=== PATIENT | female | born 1950 | race Caucasian/White ===

== ENCOUNTER → 2017-05-30 | Outpatient (CLI) | payer BC ==
--- NOTE | 2017-05-31 12:56 | MAMMOGRAPHY REPORT ---
BILATERAL DIGITAL SCREENING MAMMOGRAM TOMOSYNTHESIS WITH CAD: 05/30/2017 CLINICAL HISTORY: Routine screening. Patient has no complaints. TECHNIQUE: Breast tomosynthesis in addition to standard 2D mammography was performed. Current study was also evaluated with a Computer Aided Detection (CAD) system. COMPARISON: Comparison is made to exams dated: 05/18/2016 ultrasound, 05/18/2016 mammogram, 05/09/2016 mammogram, 04/08/2015 mammogram, 12/23/2013 mammogram, and 12/23/2013 ultrasound - [facility]. BREAST COMPOSITION: The tissue of both breasts is heterogeneously dense, which may obscure small mas ses. FINDINGS: No suspicious masses, calcifications, or areas of architectural distortion are noted in ei ther breast. There has been no significant interval change compared to prior exams. Scattered bilater al benign-appearing calcifications are not significantly changed. IMPRESSION: ACR BI-RADS CATEGORY 2: BENIGN There is no mammographic evidence of malignancy. A 1 year screening mammogram is recommended. The pa tient will receive written notification of the results. Approximately 10% of breast cancers are not detected with mammography. A negative mammographic report should not delay biopsy if a clinically suggestive mass is present. Sarah Cardoza M.D. /:05/30/2017 14:45:39 Boiler Coverer: Shilpi Bain, [facility] letter sent: Normal 1/2 BI-RADS Code: ACR BI-RADS Category 2: Benign
== END | disposition home or self-care (01) ==
LOC: C.MAMM 09:31
PROVIDERS: ATTEND Obstetrics & Gynecology
DX: Z12.31 Encounter for screening mammogram for malignant neoplasm of breast (principal)

== ENCOUNTER 2021-09-23 12:02 | Inpatient (IN) ==
[2021-09-23] MEDS ORDERED: SODIUM CHLORIDE 0.9% 1000ML 1,000 ML IV ONE (12:43)
[2021-09-23] MEDS ORDERED: ASPIRIN CHEW 324 MG PO STA (12:43)
[2021-09-23 12:45] LABS: Basophils # (auto) 0.02 K/uL (0-0.2); Basophils % (auto) 0.2 %; Eosinophils # (auto) 0.02 K/uL (0-0.5); Eosinophils % (auto) 0.2 %; Hematocrit (blood only) 45.2 % (37-47); Hemoglobin 15.5 g/dL (12.0-16.0); Immature Granulocytes # (auto) 0.04 K/uL (0.00-0.02); Immature Granulocytes % (auto) 0.3 %; Lymphocytes % (auto) 9.9 %; Mean Corpuscular Hemoglobin 32.5 pg (25-34); Mean Corpuscular Hgb Conc 34.3 g/dL (32-36); Mean Corpuscular Volume 94.8 fL (80-100); Monocytes # (auto) 0.68 K/uL (0.11-0.59); Monocytes % (auto) 5.2 %; Neutrophils # (auto) 11.01 K/uL (1.4-6.5); Neutrophils % (auto) 84.2 %; Platelet Count 231 K/uL (130-400); RDW Coefficient of Variation 14.1 % (11.5-14.5); RDW Standard Deviation 48.8 fL (36.4-46.3); Red Blood Count 4.77 M/uL (4.2-5.4); White Blood Count 13.07 K/uL (4.8-10.8)
--- NOTE | 2021-09-23 13:03 | Emergency Department Note ---
Impression & Plan Pulmonary embolism, Dizziness, Elevated troponin ED Provider Note NAME: CINDY RICHARD AGE: 71 SEX: F : 1950 ARRIVES VIA: Walk-In INFORMANT: Patient ED PROVIDER(S): Faheem Arriola DO CHIEF COMPLAINT: lightheaded HPI: Patient is a 71-year-old female with a past medical history of hypercholesterol and hypertension as well as CKD that presents to the ER for f eeling diffuse myalgias as well as some mild chest pain this morning which has resolved. When she woke up this morning she noticed a pressure in her chest. She got up and walked to the restroom and at that time she felt off kilter and felt like she was going to pass out. She also started hyperventilating and had some tingling and numbness in her arms and was breathing into a brown paper bag. Denies any belly pain, nausea, vomiting, or diarrhea. No dysuria, urgency, or frequency. She admits that currently she does not feel right. ROS: See above HPI for pertinent positives & negatives. A total of 10 systems reviewed and were otherwise negative. PAST MEDICAL HISTORY:See Below PAST SURGICAL HISTORY:See Below FAMILY HISTORY:See Below SOCIAL HISTORY:See Below HOME MEDICATIONS:See Below ALLERGIES:See Below VITALS:See Below PHYSICAL EXAMINATION: GENERAL: Sitting up in bed, alert, well appearing, well nourished, no obvious distress EYE EXAM: normal conjunctiva. OROPHARYNX: mucous membranes are moist NECK: supple, no nuchal rigidity, no adenopathy, non-tender LUNGS: Clear to auscultation. Normal chest wall mechanics HEART: tachy, S1 normal and S2 normal ABDOMEN: abdomen soft, non-tender, normo-active bowel sounds, no masses, no rebound or guarding. UPPER EXTREMITIES: upper extremities are grossly normal. LOWER EXTREMITIES: No pitting edema. NEURO EXAM: Normal sensorium, cranial nerves II-XII grossly intact, normal speech, no gross weakness of arms, no gross weakness of legs. MEDICAL DECISION MAKING: Patient is a 71-year-old female who presents the ER with above-stated complaint. IV was established blood work was obtained. Labs showed a leukocytosis 13,000. No significant anemia. BMP was unremarkable with exception of slightly elevated glucose. Troponin was elevated 0.66. EKG showed a sinus tachycardia. She was given IV fluids. There is nonspecific ST wave changes. With sinus tachycardia and the elevated troponin did consider an underlying atrial flutter but felt was prudent to completely rule out PE. Patient was taken directly to the CAT scan on the result of her Creatinine prior to the D-dimer and was brought back. I reviewed the images and saw extensive bilateral PEs with a saddle. Prior to the report from radiology consult with Dr. Stahl. Discussed the case with him. He was agreeable to keeping the patient here recommended discussing TPA with the patient versus just heparin. Had a protracted conversation with the patient at bedside. 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 Discussed with Dr. Christian Painting. Patient was given a bolus of heparin as well as a heparin drip. She is updated bedside. She is to the hospitalist and will go to the ICU for further work-up and treatment. Triage Nursing notes reviewed. Limited review of prior medical records performed Vital Signs: reviewed and remarkable for tachy, HTN Differential diagnosis: Differential diagnoses includes but is not limited to pneumonia, bronchitis, COPD/Asthma exacerbation, pneumothorax, pulmonary embolism, congestive heart failure, acute coronary syndrome ER treatment provided: See below Diagnostics interpreted by me: ECG: Sinus tachycardia rate of 137 Normal axis Septal Q waves Nonspecific ST wave changes in the lateral leads Nonspecific ST wave changes in the inferior leads QTC 422 Cardiac Monitoring: An order was placed for continuous cardiac monitoring. The monitor shows a rate of 130 with sinus rhythm. Laboratory studies: As stated above and show below. Imaging studies: CT angio the chest shows saddle PE Consultation(s): Discussed with Dr. Peewee Stahl from the ICU who agrees with keeping the p atient here and recommends discussing TPA versus heparin with the patient. They will further evaluate her once in the ICU. Discussed with Christian Painting for further evaluation admission Procedures: none Critical Care: I have personally spent 32 minutes of critical care time in the direct management of this patient. This includes bedside care, interpretation of diagnostic studies, and testing, discussion with consultants, patient, and family members, and other required patient management activities. This 32 minutes is in excess of all separately billable procedures. Past Med/Surg History Medical History CKD (chronic kidney disease) H/O cyst of breast Uterine prolapse Surgical History H/O tooth extraction Family History Denies family history of Colon cancer Ovarian cancer Breast cancer Social History Smoking Status: Never smoker Hx Alcohol Use: No Hx Substance Use: No Preferred Language: Kinyarwanda Feels Safe at Home: Yes Allergies Allergies Allergy/AdvReac Type Severity Reaction Status Date / Time amlodipine Allergy Verified 09/23/21 13:33 Home Meds Home Medications Medication Instructions Recorded Confirmed cholecalciferol (vitamin D3) 25 1,000 units PO DAILY 12/29/18 09/23/21 mcg (1,000 unit) capsule ascorbic acid (vitamin C) 500 mg 500 mg PO DAILY 09/23/21 09/23/21 tablet (Vitamin C) lisinopril 10 mg tablet 10 mg PO DAILY 09/23/21 09/23/21 multivitamin 1 tab PO DAILY 09/23/21 09/23/21 Previous Rx's Medication Instructions Recorded conjugated estrogens 0.625 mg/gram See Rx Instructions PV .COMPLEX 07/27/21 vaginal cream (Premarin) #30 gm Results & Data (ED) Vital Signs Vital Signs - 24 hr 09/23/21 12:15 09/23/21 12:23 09/23/21 12:36 Temperature 36.6 C Temperature Source Temporal Artery Scan Pulse Rate 147 H 144 H Pulse Rate [Left Finger] 127 H Pulse Rate from SpO2 Sensor Pulse Rhythm Regular Regular Pulse Rhythm [Left Finger] Regular Pulse Strength Normal Pulse Strength [Left Finger] Normal Respiratory Rate 24 20 20 Respiratory Effort / Characteristics Non-Labored Spontaneous Non-Labored Spontaneous Respiratory Depth Normal Normal Respiratory Pattern Regular Regular Blood Pressure 164/102 H Blood Pressure [Right Arm] 196/127 H Blood Pressure Mean 122 Blood Pressure Mean [Right Arm] 150 Blood Pressure Position Sitting Blood Pressure Position [Right Arm] Sitting Pulse Oximetry 94 94 95 Oxygen Delivery Method Room Air Room Air Room Air Sepsis Recent Fever Within 48 Hours No Sepsis New/Unexplained Change in Mental Status No Sepsis Action Taken by Nursing No Action Required 09/23/21 12:49 09/23/21 12:50 09/23/21 13:00 Temperature Temperature Source Pulse Rate 128 H 130 H 131 H Pulse Rate [Left Finger] Pulse Rate from SpO2 Sensor 130 H 131 H Pulse Rhythm Pulse Rhythm [Left Finger] Pulse Strength Pulse Strength [Left Finger] Respiratory Rate 24 25 H 22 Respiratory Effort / Characteristics Respiratory Depth Respiratory Pattern Blood Pressure Blood Pressure [Right Arm] Blood Pressure Mean Blood Pressure Mean [Right Arm] Blood Pressure Position Blood Pressure Position [Right Arm] Pulse Oximetry 95 92 Oxygen Delivery Method Sepsis Recent Fever Within 48 Hours Sepsis New/Unexplained Change in Mental Status Sepsis Action Taken by Nursing 09/23/21 13:10 09/23/21 13:19 09/23/21 13:20 Temperature Temperature Source Pulse Rate 130 H 134 H 129 H Pulse Rate [Left Finger] Pulse Rate from SpO2 Sensor 128 H 134 H 130 H Pulse Rhythm Pulse Rhythm [Left Finger] Pulse Strength Pulse Strength [Left Finger] Respiratory Rate 21 28 H 20 Respiratory Effort / Characteristics Respiratory Depth Respiratory Pattern Blood Pressure 198/121 H Blood Pressure [Right Arm] Blood Pressure Mean 146 Blood Pressure Mean [Right Arm] Blood Pressure Position Blood Pressure Position [Right Arm] Pulse Oximetry 96 96 93 Oxygen Delivery Method Sepsis Recent Fever Within 48 Hours Sepsis New/Unexplained Change in Mental Status Sepsis Action Taken by Nursing 09/23/21 13:30 09/23/21 13:44 09/23/21 13:58 Temperature Temperature Source Pulse Rate 135 H 130 H 137 H Pulse Rate [Left Finger] 134 H Pulse Rate from SpO2 Sensor 135 H 138 H Pulse Rhythm Pulse Rhythm [Left Finger] Regular Pulse Strength Pulse Strength [Left Finger] Normal Respiratory Rate 23 21 Respiratory Effort / Characteristics Non-Labored Spontaneous Respiratory Depth Normal Respiratory Pattern Regular Blood Pressure Blood Pressure [Right Arm] 198/121 H Blood Pressure Mean Blood Pressure Mean [Right Arm] 146 Blood Pressure Position Blood Pressure Position [Right Arm] Pulse Oximetry 96 94 Oxygen Delivery Method Room Air Sepsis Recent Fever Within 48 Hours Sepsis New/Unexplained Change in Mental Status Sepsis Action Taken by Nursing 09/23/21 14:00 09/23/21 14:10 09/23/21 14:20 Temperature Temperature Source Pulse Rate 136 H 141 H 142 H Pulse Rate [Left Finger] Pulse Rate from SpO2 Sensor 139 H 143 H 142 H Pulse Rhythm Pulse Rhythm [Left Finger] Pulse Strength Pulse Strength [Left Finger] Respiratory Rate 27 H 23 Respiratory Effort / Characteristics Respiratory Depth Respiratory Pattern Blood Pressure Blood Pressure [Right Arm] Blood Pressure Mean Blood Pressure Mean [Right Arm] Blood Pressure Position Blood Pressure Position [Right Arm] Pulse Oximetry 93 92 94 Oxygen Delivery Method Sepsis Recent Fever Within 48 Hours Sepsis New/Unexplained Change in Mental Status Sepsis Action Taken by Nursing 09/23/21 14:30 09/23/21 14:40 Temperature Temperature Source Pulse Rate 136 H 139 H Pulse Rate [Left Finger] Pulse Rate from SpO2 Sensor 136 H 138 H Pulse Rhythm Pulse Rhythm [Left Finger] Pulse Strength Pulse Strength [Left Finger] Respiratory Rate 27 H 22 Respiratory Effort / Characteristics Respiratory Depth Respiratory Pattern Blood Pressure 170/112 H Blood Pressure [Right Arm] Blood Pressure Mean 131 Blood Pressure Mean [Right Arm] Blood Pressure Position Blood Pressure Position [Right Arm] Pulse Oximetry 94 93 Oxygen Delivery Method Sepsis Recent Fever Within 48 Hours Sepsis New/Unexplained Change in Mental Status Sepsis Action Taken by Nursing Laboratory Data Result diagrams: 09/23/21 12:30 09/23/21 12:30 Lab Results 09/23/21 09/23/21 09/23/21 Range/Units 12:30 12:30 12:30 WBC 13.07 H (4.8-10.8) K/uL RBC 4.77 (4.2-5.4) M/uL Hgb 15.5 (12.0-16.0) g/dL Hct 45.2 (37-47) % MCV 94.8 (80-100) fL MCH 32.5 (25-34) pg MCHC 34.3 (32-36) g/dL RDW Std Deviation 48.8 H (36.4-46.3) fL RDW Coeff of Renae 14.1 (11.5-14.5) % Plt Count 231 (130-400) K/uL MPV 10.0 (7.4-10.4) fL Immature Gran % (Auto) 0.3 % Neut % (Auto) 84.2 % Lymph % (Auto) 9.9 % Cloud % (Auto) 5.2 % Eos % (Auto) 0.2 % Baso % (Auto) 0.2 % Neut # (Auto) 11.01 H (1.4-6.5) K/uL Lymph # (Auto) 1.30 (1.2-3.4) K/uL Cloud # (Auto) 0.68 H (0.11-0.59) K/uL Eos # (Auto) 0.02 (0-0.5) K/uL Baso # (Auto) 0.02 (0-0.2) K/uL Immature Gran # (Auto) 0.04 H (0.00-0.02) K/uL D-Dimer 3960 H* (0-500) ug/L FEU Sodium 139 (136-145) mmol/L Potassium 3.9 (3.5-5.1) mmol/L Chloride 103 (98-107) mmol/L Carbon Dioxide 24 (21-32) mmol/L Anion Gap 12 H (3-11) BUN 20 (6-23) mg/dl Creatinine 1.17 (0.6-1.2) mg/dl Est Cr Clr Drug Dosing 49.6 ml/min Est GFR ( Amer) 53.5 ml/min Est GFR (Non-Af Amer) 46.2 ml/min BUN/Creatinine Ratio 17.1 (10-20) Glucose 166 H (70-99(Fasting)) mg/dl Lactate (0.4-2.0) mmol/L Calcium 9.7 (8.5-10.1) mg/dl Magnesium (1.7-2.4) mg/dl Total Bilirubin 0.6 (0.2-1.0) mg/dl AST 39 (13-39) U/L ALT 43 (7-52) U/L Alkaline Phosphatase 84 (34-104) U/L Troponin I 0.66 H* (0-0.04) ng/ml B-Natriuretic Peptide (0-100) pg/ml Total Protein 7.9 (6.0-8.3) gm/dl Albumin 4.6 (3.4-5.0) gm/dl Globulin 3.3 (2.5-4.0) gm/dl Albumin/Globulin Ratio 1.4 (0.9-2) Lipase 48 (11-82) U/L TSH (0.300-4.500) uIu/ml SARS-CoV-2, RNA, NAAT (NEGATIVE) 09/23/21 09/23/21 09/23/21 Range/Units 12:30 12:43 14:15 WBC (4.8-10.8) K/uL RBC (4.2-5.4) M/uL Hgb (12.0-16.0) g/dL Hct (37-47) % MCV (80-100) fL MCH (25-34) pg MCHC (32-36) g/dL RDW Std Deviation (36.4-46.3) fL RDW Coeff of Renae (11.5-14.5) % Plt Count (130-400) K/uL MPV (7.4-10.4) fL Immature Gran % (Auto) % Neut % (Auto) % Lymph % (Auto) % Cloud % (Auto) % Eos % (Auto) % Baso % (Auto) % Neut # (Auto) (1.4-6.5) K/uL Lymph # (Auto) (1.2-3.4) K/uL Cloud # (Auto) (0.11-0.59) K/uL Eos # (Auto) (0-0.5) K/uL Baso # (Auto) (0-0.2) K/uL Immature Gran # (Auto) (0.00-0.02) K/uL D-Dimer (0-500) ug/L FEU Sodium (136-145) mmol/L Potassium (3.5-5.1) mmol/L Chloride (98-107) mmol/L Carbon Dioxide (21-32) mmol/L Anion Gap (3-11) BUN (6-23) mg/dl Creatinine (0.6-1.2) mg/dl Est Cr Clr Drug Dosing ml/min Est GFR ( Amer) ml/min Est GFR (Non-Af Amer) ml/min BUN/Creatinine Ratio (10-20) Glucose (70-99(Fasting)) mg/dl Lactate (0.4-2.0) mmol/L Calcium (8.5-10.1) mg/dl Magnesium 2.0 (1.7-2.4) mg/dl Total Bilirubin (0.2-1.0) mg/dl AST (13-39) U/L ALT (7-52) U/L Alkaline Phosphatase (34-104) U/L Troponin I (0-0.04) ng/ml B-Natriuretic Peptide (0-100) pg/ml Total Protein (6.0-8.3) gm/dl Albumin (3.4-5.0) gm/dl Globulin (2.5-4.0) gm/dl Albumin/Globulin Ratio (0.9-2) Lipase (11-82) U/L TSH 2.518 (0.300-4.500) uIu/ml SARS-CoV-2, RNA, NAAT NEGATIVE (NEGATIVE) 09/23/21 09/23/21 Range/Units 14:24 14:25 WBC (4.8-10.8) K/uL RBC (4.2-5.4) M/uL Hgb (12.0-16.0) g/dL Hct (37-47) % MCV (80-100) fL MCH (25-34) pg MCHC (32-36) g/dL RDW Std Deviation (36.4-46.3) fL RDW Coeff of Renae (11.5-14.5) % Plt Count (130-400) K/uL MPV (7.4-10.4) fL Immature Gran % (Auto) % Neut % (Auto) % Lymph % (Auto) % Cloud % (Auto) % Eos % (Auto) % Baso % (Auto) % Neut # (Auto) (1.4-6.5) K/uL Lymph # (Auto) (1.2-3.4) K/uL Cloud # (Auto) (0.11-0.59) K/uL Eos # (Auto) (0-0.5) K/uL Baso # (Auto) (0-0.2) K/uL Immature Gran # (Auto) (0.00-0.02) K/uL D-Dimer (0-500) ug/L FEU Sodium (136-145) mmol/L Potassium (3.5-5.1) mmol/L Chloride (98-107) mmol/L Carbon Dioxide (21-32) mmol/L Anion Gap (3-11) BUN (6-23) mg/dl Creatinine (0.6-1.2) mg/dl Est Cr Clr Drug Dosing ml/min Est GFR ( Amer) ml/min Est GFR (Non-Af Amer) ml/min BUN/Creatinine Ratio (10-20) Glucose (70-99(Fasting)) mg/dl Lactate 2.9 H* (0.4-2.0) mmol/L Calcium (8.5-10.1) mg/dl Magnesium (1.7-2.4) mg/dl Total Bilirubin (0.2-1.0) mg/dl AST (13-39) U/L ALT (7-52) U/L Alkaline Phosphatase (34-104) U/L Troponin I (0-0.04) ng/ml B-Natriuretic Peptide 37 (0-100) pg/ml Total Protein (6.0-8.3) gm/dl Albumin (3.4-5.0) gm/dl Globulin (2.5-4.0) gm/dl Albumin/Globulin Ratio (0.9-2) Lipase (11-82) U/L TSH (0.300-4.500) uIu/ml SARS-CoV-2, RNA, NAAT (NEGATIVE) Administered Medications Heparin Sodium/Dextrose (Heparin Sodium/Dextrose) 25,000 units in 500 mls @ 26 mls/hr IV .[id number] [facility]; Protocol Stop: 10/23/21 14:14 Last Admin: 09/23/21 14:09 Dose: 1,300 units/hr, 26 mls/hr Documented by: [id number] Cosigned by: [id number] Discontinued Medications Aspirin (Aspirin Chew 324 Mg) 324 mg PO NOW STA Stop: 09/23/21 12:44 Last Admin: 09/23/21 12:52 Dose: 324 mg Documented by: [id number] Heparin Sodium (Porcine) (Heparin Sod (Porcine) 1000 Unit/Ml) 6,000 units IV NOW ONE Stop: 09/23/21 14:04 Last Admin: 09/23/21 14:09 Dose: 6,000 units Documented by: [id number] Cosigned by: [id number] Heparin Sodium/Dextrose (Heparin Iv Adult Wt-Based Standard With Bolus Protocol) 1 ea IV NOW STA; Protocol Stop: 09/23/21 13:49 Last Admin: 09/23/21 15:57 Dose: 1 ea Documented by: [id number] Sodium Chloride (Nss 1000ml) 1,000 mls @ 999 mls/hr IV .[id number] ONE Stop: 09/23/21 13:43 Last Infusion: 09/23/21 15:55 Dose: 0 mls/hr Documented by: [id number] Admin: 09/23/21 12:52 Dose: 999 mls/hr Documented by: [id number] Ioversol (Optiray 320 125ml) 120 ml IV ONCE ONE Stop: 09/23/21 13:37 Last Admin: 09/23/21 13:39 Dose: 120 ml Documented by: [id number] Imaging Data Radiologist's Impression: Chest X-Ray 09/23/21 12:23 XR chest 1V portable HISTORY: Atypical Chest Pain COMPARISON: None. FINDINGS: No pleural effusions. No pneumothorax. The heart is normal in size. No evidence for pulmonary edema. No rib fractures identified. No focal lung consolidations to suggest pneumonia. Coarse interstitial markings at the lung apices which is likely chronic. IMPRESSION: No acute process within the chest. ACT 112: Negative or not required by law. Electronically signed by: Johnathan Stark M.D. 09/23/2021 1:10 PM Chest CTA 09/23/21 13:23 CHEST CTA for PULMONARY ARTERIES CT DOSE: 424.02 mGy.cm HISTORY: Atypical chest pain. Assess for pulmonary embolus. TECHNIQUE: Multiaxial CT images of the chest were performed following the in travenous administration of contrast to evaluate the pulmonary arteries. Maximal intensity projection images were also obtained. A dose lowering technique was utilized adhering to the principles of ALARA. COMPARISON STUDY: None. FINDINGS: Limited views of the upper abdomen demonstrate normal liver and spleen. Normal esophagus. The thyroid gland enhances normally. No pleural or pericardial effusions. No mediastinal or hilar lymphadenopathy. Normal caliber thoracic aorta with no evidence for dissection. There is flattening of the interventricular septum with dilatation of the right ventricle consistent with right-sided heart strain. There is a saddle embolus at the main pulmonary arteries with extensive bilateral pulmonary emboli. No suspicious lytic or blastic osseous lesions. No pneumothorax. Mild biapical pleural-parenchymal densities which favor scarring chronic interstitial change. There is a 4 mm nodule within the right lung apex on image 194. Small faint groundglass density within the periphery the right lower lobe on image 90 may represent scarring or a developing pulmonary infarct. IMPRESSION: 1. Extensive bilateral pulmonary emboli including a saddle embolus at the main pulmonary arteries. There is associated right-sided heart strain. 2. Small faint groundglass density within the periphery of the right lower lobe which may represent scarring or a developing pulmonary infarct. 3. A 4 mm indeterminate pulmonary nodule within the right lung apex. Please refer to below summary of Fleischner criteria recommendations for follow- up of incidental CT nodules (Minor Hawley, Guidelines for management of small pulmonary nodules detected on CT scans: A statement from the Fleischner Society, Radiology 237: [phone].) SOLID NODULES Solitary nodule size: <6 mm * Low risk patients: no follow-up needed * high risk patients: optional CT at 12 months Solitary nodule size: 6-8 mm * Low risk patients: follow-up at 6-12 months, then consider further follow-up at 18-24 months * high risk patients: initial follow-up CT at 6-12 months and then at 18-24 months if no change Solitary nodule size: >8 mm * either low or high risk patients - consider follow-up CT at 3 months, and/or CT-PET, and/or biopsy Multiple nodules size: <6 mm * Low risk patients: no routine follow-up * high risk patients: optional CT at 12 months Multiple nodules size: 6-8 mm * Low risk patients: follow-up at 3-6 months, then consider further follow-up at 18-24 months * high risk patients: follow-up at 3-6 months, then at 18-24 months if no change Multiple nodules size: >8 mm * Low risk patients: follow-up at 3-6 months, then consider further follow-up at 18-24 months * high risk patients: follow-up at 3-6 months, then at 18-24 months if no change Note: newly detected indeterminate nodule in persons 35 years of age or older. * Low risk patients: minimal or absent history of smoking and/or other known risk factors * high risk patients: history of smoking or of other known risk factors (e.g. first degree relative with lung cancer, or exposure to asbestos, radon, uranium) * if a nodule up to 8 mm is partly solid or is ground glass further follow-up is required after 24 months to exclude possible slow growing adenocarcinoma (ISMAEL) SUBSOLID NODULES Solitary pure ground-glass nodule * nodule size <6 mm - no CT follow-up required * nodule size >=6 mm - follow-up CT at 6-12 months, then every 2 years until 5 years Solitary part-solid nodule * nodule size <6 mm - no CT follow-up required * nodule size >=6 mm - follow-up CT at 3-6 months. If unchanged, and solid component remains <6 mm, then annual follow-up for 5 years Multiple subsolid nodules * nodule size <6 mm - follow-up CT at 3-6 months, consider further follow-up at 2 and 4 years if stable * nodule size >=6 mm - follow-up CT at 3-6 months, subsequent management based on the most suspicious nodule(s) ACT 112: Negative or not required by law. Electronically signed by: Johnathan Stark M.D. 09/23/2021 1:50 PM Discharge Plan Visit Data Chief Complaint: Tachycardia Stated Complaint: SOB, HIGH PULSE RATE, WEAKNESS IN LEGS, NAUSEA ED Provider: Faheem Arriola Discharge Problem: Pulmonary embolism, Dizziness, Elevated troponin Patient Disposition: Admitted As Inpatient Discharge Instructions Interventions: ED Discharge Assessment Last Done: 09/23/21 14:58
--- NOTE | 2021-09-23 13:12 | XRay Report ---
XR chest 1V portable HISTORY: Atypical Chest Pain COMPARISON: None. FINDINGS: No pleural effusions. No pneumothorax. The heart is normal in size. No evidence for pulmona ry edema. No rib fractures identified. No focal lung consolidations to suggest pneumonia. Coarse inte rstitial markings at the lung apices which is likely chronic. IMPRESSION: No acute process within the chest. ACT 112: Negative or not required by law. Electronically signed by: Johnathan Stark M.D. 09/23/2021 1:10 PM
[2021-09-23 13:14] LABS: Albumin Globulin Ratio 1.4 (0.9-2); Albumin Level 4.6 gm/dl (3.4-5.0); BUN Creatinine Ratio 17.1 (10-20); Bilirubin,Total 0.6 mg/dl (0.2-1.0); Calcium 9.7 mg/dl (8.5-10.1); Creatinine Clr Calc Pharmacy 49.6 ml/min; Est GFR (African American) 53.5 ml/min; Est GFR (Non-African American) 46.2 ml/min; Globulin 3.3 gm/dl (2.5-4.0); Potassium 3.9 mmol/L (3.5-5.1); Total Protein 7.9 gm/dl (6.0-8.3)
[2021-09-23 13:20] LABS: Troponin I 0.66 ng/ml (0-0.04)
[2021-09-23] MEDS ORDERED: OPTIRAY 320 125ml IV ONE (13:36)
[2021-09-23 13:45] LABS: D Dimer 3960 ug/L FEU (0-500)
[2021-09-23] MEDS ORDERED: Heparin IV Adult Wt-Based Standard WITH Bolus Protocol IV STA (13:48)
--- NOTE | 2021-09-23 13:52 | CT Scan Report ---
CHEST CTA for PULMONARY ARTERIES CT DOSE: 424.02 mGy.cm HISTORY: Atypical chest pain. Assess for pulmonary embolus. TECHNIQUE: Multiaxial CT images of the chest were performed following the intravenous administration of contrast to evaluate the pulmonary arteries. Maximal intensity projection images were also obtaine d. A dose lowering technique was utilized adhering to the principles of ALARA. COMPARISON STUDY: None. FINDINGS: Limited views of the upper abdomen demonstrate normal liver and spleen. Normal esophagus. T he thyroid gland enhances normally. No pleural or pericardial effusions. No mediastinal or hilar lymp hadenopathy. Normal caliber thoracic aorta with no evidence for dissection. There is flattening of th e interventricular septum with dilatation of the right ventricle consistent with right-sided heart st rain. There is a saddle embolus at the main pulmonary arteries with extensive bilateral pulmonary emb momo. No suspicious lytic or blastic osseous lesions. No pneumothorax. Mild biapical pleural-parenchym al densities which favor scarring chronic interstitial change. There is a 4 mm nodule within the righ t lung apex on image 194. Small faint groundglass density within the periphery the right lower lobe o n image 90 may represent scarring or a developing pulmonary infarct. IMPRESSION: 1. Extensive bilateral pulmonary emboli including a saddle embolus at the main pulmonary arteries. Th ere is associated right-sided heart strain. 2. Small faint groundglass density within the periphery of the right lower lobe which may represent s carring or a developing pulmonary infarct. 3. A 4 mm indeterminate pulmonary nodule within the right lung apex. Please refer to below summary of Fleischner criteria recommendations for follow-up of incidental CT n odules (Minor Hawley, Guidelines for management of small pulmonary nodules detected on CT scans: A sta tement from the Fleischner Society, Radiology 237: [phone].) SOLID NODULES Solitary nodule size: <6 mm * Low risk patients: no follow-up needed * high risk patients: optional CT at 12 months Solitary nodule size: 6-8 mm * Low risk patients: follow-up at 6-12 months, then consider further follow-up at 18-24 months * high risk patients: initial follow-up CT at 6-12 months and then at 18-24 months if no change Solitary nodule size: >8 mm * either low or high risk patients - consider follow-up CT at 3 months, and/or CT-PET, and/or biopsy Multiple nodules size: <6 mm * Low risk patients: no routine follow-up * high risk patients: optional CT at 12 months Multiple nodules size: 6-8 mm * Low risk patients: follow-up at 3-6 months, then consider further follow-up at 18-24 months * high risk patients: follow-up at 3-6 months, then at 18-24 months if no change Multiple nodules size: >8 mm * Low risk patients: follow-up at 3-6 months, then consider further follow-up at 18-24 months * high risk patients: follow-up at 3-6 months, then at 18-24 months if no change Note: newly detected indeterminate nodule in persons 35 years of age or older. * Low risk patients: minimal or absent history of smoking and/or other known risk factors * high risk patients: history of smoking or of other known risk factors (e.g. first degree relative with lung cancer, or exposure to asbestos, radon, uranium) * if a nodule up to 8 mm is partly solid or is ground glass further follow-up is required after 24 m [address] to exclude possible slow growing adenocarcinoma (ISMAEL) SUBSOLID NODULES Solitary pure ground-glass nodule * nodule size <6 mm - no CT follow-up required * nodule size >=6 mm - follow-up CT at 6-12 months, then every 2 years until 5 years Solitary part-solid nodule * nodule size <6 mm - no CT follow-up required * nodule size >=6 mm - follow-up CT at 3-6 months. If unchanged, and solid component remains <6 mm, then annual follow-up for 5 years Multiple subsolid nodules * nodule size <6 mm - follow-up CT at 3-6 months, consider further follow-up at 2 and 4 years if sta ble * nodule size >=6 mm - follow-up CT at 3-6 months, subsequent management based on the most suspiciou s nodule(s) ACT 112: Negative or not required by law. Electronically signed by: Johnathan Stark M.D. 09/23/2021 1:50 PM
[2021-09-23] MEDS ORDERED: Heparin IV Adult Wt-Based Standard WITH Bolus Protocol IV SCH (14:00)
[2021-09-23] MEDS ORDERED: HEPARIN SOD (PORCINE) 1000 UNIT/ML IV ONE ×2 (14:03)
[2021-09-23] MEDS ORDERED: HEPARIN SODIUM/DEXTROSE 25,000 UNITS/500 ML BAG IV SCH (14:15)
--- NOTE | 2021-09-23 14:47 | History & Physical Report ---
Date of Service September 23, 2021 Assessment & Plan (1) Pulmonary embolism: Plan: Bilateral pulmonary embolism with heart strain called on CT (diagnostic ECHO) pending, without hypotension or oxygen requirement - PESI III - With Troponin I elevation- BNP normal - Not hypoxic - Shock index -0.8 - Lacate 2.9 - Heparin infusion started with bolus by EMD. PT/INR/PTT and Fibrinogen added Patient is awake and conversant without hypoxia or feeling overly dyspneic, she feels comfortable. Her blood pressure is elevated, but without waiveror drop, without ectopy. Troponin of 0.66. Discussed with the patient as well regarding current treatment with heparin vs. thrombolytic. Patient understands and as she "feels pretty well and does not want the risk of bleeding in head or anywhere" does not want thrombolytics given at this time. If patient were to decompensate or have cardiac arrest would dose with 50 mg of tPA As her tachycardia is likely directly related to her pulmonary embolism and without instability at this time will hold on aggressive rate controlling agents. Once hemodynamic stability proved in next 1-2 hours would initiate BB of 5mg of Metoprolol to evaluate response. Avoid aggressive volume resuscitation. If hemodynamic support was needed consider Epinepherine or Vasopressin. (2) Chronic kidney disease (CKD), stage III (moderate): Plan: CKD stable with baseline [employer]ER around 1.1 - Continue to follow (3) History of hypertension: Plan: Recently started on Lisinipril 10mg PO daily - markedly increased today likely secondary to #1 - follow as above, once hemodynamic stability proven will decrease (4) Hypercholesterolemia: Plan: Not on therapy at home (5) Obesity: Plan: Chronic- no acute needs- (6) Uterine prolapse: Plan: With Pessary- follows [facility] - endorses some history and recurrence of small amount of bleeding on toilet paper- she was to follow up with them on Saturday - She has had some cauterization done the past- follow with anticoagulation (7) Vaginal bleeding: Plan: As above (8) Pulmonary nodule: Plan: Incidental pulmonary nodule seen on CT scan of the chest- 4mm - Follow up with pulmonary as outpatient as warranted - Solitary nodule size: <6 mm * Low risk patients: no follow-up needed * high risk patients: optional CT at 12 months History of Present Illness Primary Care Provider: Lnag Connolly MD 71 YOF with past medical history of: Obesity, HTN, Uterine Prolapse- with pessary, Vaginal bleeding, CKD III, lower extremity edema. Patient comes to the emergency room today for dyspnea, leg pain, nausea, and overall muscle pain in her arms and chest. The patient states that if she would get up to move, that her leg pain would get worse followed by nausea without vomiting. She has chronic leg pain and leg swelling but the only change is the leg pain. The pain is noted in her quads and around her knees and worse with ambulation. The arm pain was located in her left side and felt like she was lifting weights, "it just felt heavy and sore". In the EMD she had routine labs drawn to include Troponin I and D-dimer. These were both elevated. Patient then had CTA for PE of her chest. This was interpreted as Extensive bilateral pulmonary emboli including a saddle embolus at the main pulmonary arteries and some ground glass opacities that may reflect pulmonary infarct. EMD discussed case with composite laminator at the time for evaluation of thrombolytics. As patient was without shock and risks discussed she also felt that she would want to go with heparin at this time. Hospitalist team was consulted for admission. The patient is on room air, SBP elevated, HR 130s. PESI III, Troponin 0.66. Patient will be admitted to the ICU for tachycardia and HTN following in the setting of extensive bilateral pulmonary embolism to follow her cardiopulmonary status. Patient has no history of Cancer, she follows with [facility] for vaginal bleeding, she has done the Cologuard screening for her rectal cancer screening, however does not appear that she has had a colonoscopy. She has chronically edematous legs with varicosities for which she wears compression hose for. She was up and walking around the mall yesterday doing some shopping and reports that she fell fine. She has not been less active recently and she also reports that she normally will do flexion and extensions of her ankles to prevent blood clots. She has not had any recent immunizations or illnesses. Was recently started on Lisinopril for elevated blood pressure. She does endorse that she had two sisters who had DVT and one with DVT/PE following surgical procedures, but other than that can not recall any clotting history in her family. COVID test on admission is: NEGATIVE Allergies Allergy/AdvReac Type Severity Reaction Status Date / Time amlodipine Allergy Verified 09/23/21 13:33 Home Medications Medication Instructions Recorded Confirmed Type cholecalciferol (vitamin D3) 25 1,000 units PO DAILY 12/29/18 09/23/21 History mcg (1,000 unit) capsule conjugated estrogens 0.625 mg/gram See Rx Instructions PV .COMPLEX 07/27/21 09/23/21 Rx vaginal cream (Premarin) #30 gm ascorbic acid (vitamin C) 500 mg 500 mg PO DAILY 09/23/21 09/23/21 History tablet (Vitamin C) lisinopril 10 mg tablet 10 mg PO DAILY 09/23/21 09/23/21 History multivitamin 1 tab PO DAILY 09/23/21 09/23/21 History Past Med/Surg History Medical History CKD (chronic kidney disease) H/O cyst of breast Uterine prolapse Surgical History H/O tooth extraction Family History Denies family history of Colon cancer Ovarian cancer Breast cancer Social History Smoking Status: Never smoker Hx Alcohol Use: No Hx Substance Use: No Preferred Language: Sammarinese Communication Ability: Effective Hospital Supervisor Required: No Beliefs That Will Affect Care: None Current Living Situation: Spouse Other Information That Helps Us Care for You: No Feels Safe at Home: Yes Safety Concerns: Feels Safe At This Time Assistive Devices: Review of Systems Review of Systems: REVIEW OF SYSTEMS: Constitutional: No fever, sweats or chills Eyes: No diplopia, no worsening or blurred vision ENT: normal hearing, no trouble swallowing Respiratory: (+) dyspnea on exertion, No cough, sputum, Cardiovascular: (+) chest pain, and arm pain, (+) chronic lower extremity edema, no tightness or palpitations Abdomen: (+) nausea, diarrhea this morning, No pain, vomiting, or constipation Musculoskeletal: No joint pain, calf pain, Neurologic: No weakness, numbness/tingling, or balance problems Psychiatric: No anxiety or depression Skin: No rash or itch Physical Exam Physical Exam: PHYSICAL EXAM: General: awake, alert, no apparent distress Head: Normocephalic, atraumatic ENT: PERRL, EOMI, no pharyngeal exudate, mucous membranes moist Neuro: AAO x 3, speech clear and appropriate, strength intact bilaterally 5/5, sensation intact and equal all extremities and dermatomes, no pronator drift Chest: equal rise and fall of the chest, no accessory muscle use, no heaves or thrills, Clear to auscultation, on room air, Cardiac: Regular rate and rhythm, telemetry reviewed, skin warm dry, cap refill <3 seconds, peripheral pulses +2 no JVD, no murmur, +3 edema to lower extremities knee down to feet GI: NABS x 4 quadrants, soft, nontender to palpation, no rebound, guarding or tenderness : Spontaneously voiding, no pain, no CVA tenderness, pessary in place Psych: Normal mood and affect Skin: no rash or erythema Results & Data Results & Data ([facility]) Vital Signs (Past 12 Hours) Vital Signs Temp Pulse Pulse Resp BP BP Pulse Ox 09/23/21 14:40 139 H 22 170/112 H 93 09/23/21 14:30 136 H 27 H 94 09/23/21 14:20 142 H 23 94 09/23/21 14:10 141 H 27 H 92 09/23/21 14:00 136 H 93 09/23/21 13:58 137 H 94 09/23/21 13:44 130 H 21 09/23/21 13:30 135 H 134 H 23 198/121 H 96 09/23/21 13:20 129 H 20 93 09/23/21 13:19 134 H 28 H 198/121 H 96 09/23/21 13:10 130 H 21 96 09/23/21 13:00 131 H 22 92 09/23/21 12:50 130 H 25 H 95 09/23/21 12:49 128 H 24 09/23/21 12:36 127 H 20 196/127 H 95 09/23/21 12:23 144 H 20 94 09/23/21 12:15 36.6 C 147 H 24 164/102 H 94 Laboratory Results Abnormal lab results 09/23/21 09/23/21 09/23/21 Range/Units 12:30 12:30 12:30 WBC 13.07 H (4.8-10.8) K/uL RDW Std Deviation 48.8 H (36.4-46.3) fL Neut # (Auto) 11.01 H (1.4-6.5) K/uL [place]erry # (Auto) 0.68 H (0.11-0.59) K/uL Immature Gran # (Auto) 0.04 H (0.00-0.02) K/uL D-Dimer 3960 H* (0-500) ug/L FEU Anion Gap 12 H (3-11) Glucose 166 H (70-99(Fasting)) mg/dl Lactate (0.4-2.0) mmol/L Troponin I 0.66 H* (0-0.04) ng/ml 09/23/21 Range/Units 14:25 WBC (4.8-10.8) K/uL RDW Std Deviation (36.4-46.3) fL Neut # (Auto) (1.4-6.5) K/uL [place]erry # (Auto) (0.11-0.59) K/uL Immature Gran # (Auto) (0.00-0.02) K/uL D-Dimer (0-500) ug/L FEU Anion Gap (3-11) Glucose (70-99(Fasting)) mg/dl Lactate 2.9 H* (0.4-2.0) mmol/L Troponin I (0-0.04) ng/ml Diagnostic Findings Chest X-Ray 09/23/21 12:23 XR chest 1V portable HISTORY: Atypical Chest Pain COMPARISON: None. FINDINGS: No pleural effusions. No pneumothorax. The heart is normal in size. No evidence for pulmonary edema. No rib fractures identified. No focal lung consolidations to suggest pneumonia. Coarse interstitial markings at the lung apices which is likely chronic. IMPRESSION: No acute process within the chest. ACT 112: Negative or not required by law. Electronically signed by: Johnathan Stark M.D. 09/23/2021 1:10 PM Chest CTA 09/23/21 13:23 CHEST CTA for PULMONARY ARTERIES [address] DOSE: 424.02 mGy.cm HISTORY: Atypical chest pain. Assess for pulmonary embolus. TECHNIQUE: Multiaxial CT images of the chest were performed following the intravenous administration of contrast to evaluate the pulmonary arteries. Maximal intensity projection images were also obtained. A dose lowering technique was utilized adhering to the principles of ALARA. COMPARISON STUDY: None. FINDINGS: Limited views of the upper abdomen demonstrate normal liver and spleen. Normal esophagus. The thyroid gland enhances normally. No pleural or pericardial effusions. No mediastinal or hilar lymphadenopathy. Normal caliber thoracic aorta with no evidence for dissection. There is flattening of the interventricular septum with dilatation of the right ventricle consistent with right-sided heart strain. There is a saddle embolus at the main pulmonary arteries with extensive bilateral pulmonary emboli. No suspicious lytic or blastic osseous lesions. No pneumothorax. Mild biapical pleural-parenchymal densities which favor scarring chronic interstitial change. There is a 4 mm nodule within the right lung apex on image 194. Small faint groundglass density within the periphery the right lower lobe on image 90 may represent scarring or a developing pulmonary infarct. IMPRESSION: 1. Extensive bilateral pulmonary emboli including a saddle embolus at the main pulmonary arteries. There is associated right-sided heart strain. 2. Small faint groundglass density within the periphery of the right lower lobe which may represent scarring or a developing pulmonary infarct. 3. A 4 mm indeterminate pulmonary nodule within the right lung apex. Please refer to below summary of Fleischner criteria recommendations for follow- up of incidental CT nodules (Minor Hawley, Guidelines for management of small pulmonary nodules detected on CT scans: A statement from the Fleischner Society, Radiology 237: [phone].) SOLID NODULES Solitary nodule size: <6 mm * Low risk patients: no follow-up needed * high risk patients: optional CT at 12 months Solitary nodule size: 6-8 mm * Low risk patients: follow-up at 6-12 months, then consider further follow-up at 18-24 months * high risk patients: initial follow-up CT at 6-12 months and then at 18-24 months if no change Solitary nodule size: >8 mm * either low or high risk patients - consider follow-up CT at 3 months, and/or CT-PET, and/or biopsy Multiple nodules size: <6 mm * Low risk patients: no routine follow-up * high risk patients: optional CT at 12 months Multiple nodules size: 6-8 mm * Low risk patients: follow-up at 3-6 months, then consider further follow-up at 18-24 months * high risk patients: follow-up at 3-6 months, then at 18-24 months if no change Multiple nodules size: >8 mm * Low risk patients: follow-up at 3-6 months, then consider further follow-up at 18-24 months * high risk patients: follow-up at 3-6 months, then at 18-24 months if no change Note: newly detected indeterminate nodule in persons 35 years of age or older. * Low risk patients: minimal or absent history of smoking and/or other known risk factors * high risk patients: history of smoking or of other known risk factors (e.g. first degree relative with lung cancer, or exposure to asbestos, radon, uranium) * if a nodule up to 8 mm is partly solid or is ground glass further follow-up is required after 24 months to exclude possible slow growing adenocarcinoma (ISMAEL) SUBSOLID NODULES Solitary pure ground-glass nodule * nodule size <6 mm - no CT follow-up required * nodule size >=6 mm - follow-up CT at 6-12 months, then every 2 years until 5 years Solitary part-solid nodule * nodule size <6 mm - no CT follow-up required * nodule size >=6 mm - follow-up CT at 3-6 months. If unchanged, and solid component remains <6 mm, then annual follow-up for 5 years Multiple subsolid nodules * nodule size <6 mm - follow-up CT at 3-6 months, consider further follow-up at 2 and 4 years if stable * nodule size >=6 mm - follow-up CT at 3-6 months, subsequent management based on the most suspicious nodule(s) ACT 112: Negative or not required by law. Electronically signed by: Johnathan Stark M.D. 09/23/2021 1:50 PM Medications Administered Heparin Sodium/Dextrose (Heparin Sodium/Dextrose) 25,000 units in 500 mls @ 26 mls/hr IV .[id number] [facility]; Protocol Stop: 10/23/21 14:14 Last Admin: 09/23/21 14:09 Dose: 1,300 units/hr, 26 mls/hr Documented by: [id number] Cosigned by: [id number] Discontinued Medications Aspirin (Aspirin Chew 324 Mg) 324 mg PO NOW STA Stop: 09/23/21 12:44 Last Admin: 09/23/21 12:52 Dose: 324 mg Documented by: [id number] Heparin Sodium (Porcine) (Heparin Sod (Porcine) 1000 Unit/Ml) 6,000 units IV NOW ONE Stop: 09/23/21 14:04 Last Admin: 09/23/21 14:09 Dose: 6,000 units Documented by: [id number] Cosigned by: [id number] Sodium Chloride (Nss 1000ml) 1,000 mls @ 999 mls/hr IV .Q1H1M ONE Stop: 09/23/21 13:43 Last Admin: 09/23/21 12:52 Dose: 999 mls/hr Documented by: [id number] Ioversol (Optiray 320 125ml) 120 ml IV ONCE ONE Stop: 09/23/21 13:37 Last Admin: 09/23/21 13:39 Dose: 120 ml Documented by: [id number] ECG Additional Comments: Sinus tachycardia with Premature ventricular complexes or Fusion complexes Possible Left atrial enlargement Nonspecific ST and T wave abnormality Abnormal ECG No previous ECGs available Code Status & VTE Plan Code Status CODE: FULL VTE: TEDS, Heparin Drip VTE Prophylaxis Plan VTE Prophylaxis will be ordered: Yes Supervising Physician Co-Signing Physician Notes I supervised MELINDA Murphy on this admission. I interviewed and examined the patient independently of him. The plan is as written in his note except for any following changes/exceptions: None 71yo F w/ hx of HTN who presents with saddle PE. The patient was seen in the ER. She is tachycardic and hypertensive. In discussion with ICU attending, will defer tPA given her hemodynamic stability. Will transition to ICU for close monitoring and continued anticoagulation. PG Care Time/CCT Total # of Minutes Spent Total Time Spent with Patient: Total time spent is greater than 50% in coordination of care (as documented) at patient's floor/unit and/or counseling patient: Coding Level of Care Code 23252 Initial Inpt Care Lvl 3 Diagnoses Pulmonary embolism I26.99 Chronic kidney disease (CKD), stage III (moderate) N18.3 History of hypertension Z86.79 Hypercholesterolemia E78.00 Obesity E66.9 Uterine prolapse N81.4 Vaginal bleeding N93.9 Pulmonary nodule R91.1
[2021-09-23] MEDS ORDERED: THIAMINE HCL 500 MG in SODIUM CHLORIDE 0.9% 50 ML IV STA (15:25)
[2021-09-23] MEDS ORDERED: ICU PROTOCOL FOR HYPERGLYCEMIA PRN (15:52)
[2021-09-23] MEDS: METOPROLOL TARTRATE 1 MG/ML VIAL IV SCH ×2 (16:46→17:32)
[2021-09-23] MEDS: FAMOTIDINE 20 MG in SYRINGE 3 ML IV SCH (16:46)
[2021-09-23 16:48] LABS: Fibrinogen 400 mg/dl (184-400); INR 1.1 (0.9-1.1); Partial Thromboplastin Ratio > 5.1; Prothrombin Time 11.4 Seconds (9.0-12.0)
[2021-09-23 17:05] LABS: Partial Thromboplastin Time > 139.0 Seconds (21.0-31.0)
[2021-09-23 18:26] LABS: Partial Thromboplastin Ratio 4.7
[2021-09-23 18:35] LABS: Partial Thromboplastin Time 128.3 Seconds (21.0-31.0)
--- NOTE | 2021-09-23 19:21 | Ultrasound Report ---
BILATERAL LOWER EXTREMITY VENOUS DOPPLER HISTORY: Leg pain. Pulmonary embolus. Assess for DVT. COMPARISON STUDY: None. FINDINGS: There is normal compressibility, flow, and augmentation within the right lower extremity de ep venous system. The left common femoral and superficial femoral veins are patent. There is occlusiv e thrombus identified within the left popliteal, posterior tibial, and peroneal veins. The left anter ior tibial veins are patent. IMPRESSION: 1. Left lower extremity DVT as described above. 2. No right lower extremity DVT. ACT 112: Negative or not required by law. Electronically signed by: Johnathan Stark M.D. 09/23/2021 7:19 PM
--- NOTE | 2021-09-23 20:20 | Critical Care Consultation ---
Date of Consultation September 23, 2021 Assessment & Plan (1) Pulmonary embolism: Impression: 71-year-old female presents to the ICU with acute PE with evidence of cor pulmonale, currently on heparin drip and to undergo continuous hemodynamic monitoring as patient is high risk for decompensation which would require lysis. Neuro - [facility] ICU: Negative Cardiac - Cor pulmonale secondary to saddle PEevidence of right heart strain on CT and elevated troponin. Low threshold for lysis if patient becomes hemodynamically unstable. -Follow-up echo in a.m. -Trend troponins -Lactic acid 2.9, trend -Hold lisinopril. May consider low-dose oral MTP as patient is currently hypertensive -Currently tachycardic with heart rate 130s, continuous monitoring on telemetry History of HTNhold lisinopril for now Respiratory - Acute pulmonary embolismpatient with CT evidence of large saddle PE and kevon dence of pulmonary infarction. She is currently mildly tachypneic without labored breathing and comfortable on room air. -Continue heparin drip. Low threshold for lysis if patient were to decompens ate. -Continuous monitoring on pulse ox GI - Heart healthy diet Famotidine RENAL/LYTES - CKD stage IIIcreatinine currently stable -Holding lisinopril -Monitor routine BMPs and replete electrolytes as indicated - Strict I's and O's ENDO - No history of diabetes or thyroid disease ICU hyperglycemic protocol HEME - H&H stable, no evidence of bleeding. Monitor routine CBCs ID - No negation for infectious process at this time LINES/IV ACCESS - Peripheral IVs DVT PROPHYLAXIS - SCDs, heparin drip Thank you for allowing us to participate in the care of this patient. Please refer to my attending physician's documentation for any further recommendations. (2) Elevated troponin: (3) Cor pulmonale, acute: (4) Dizziness: (5) Chronic kidney disease (CKD), stage III (moderate): (6) History of hypertension: History of Present Illness Reason for Consultation: Patient is a 71-year-old female with past medical history of HTN, CKD stage III, chronic lower extremity edema who presented to the emergency department with complaints of vertigo, fatigue, and shortness of breath with exertion. She also states that she had leg pain in her right upper leg 2 days ago which became hot, which is now subsided. She does not have any history of DVTs or PE, however did endorse family history of blood clots with her sisters. She states that she developed bilateral lower extremity edema as a teenager and wears compression stockings during the day, and elevates feet at night. Patient had elevated troponin and D-dimer in the emergency department and underwent CTA for PE of her chest. She was found to have extensive bilateral pulmonary emboli including a saddle embolus at the main pulmonary arteries and some groundglass opacities that may reflect pulmonary infarct. There was evidence of right heart strain as well on the CT. She was hypertensive and tachycardic and was given low-dose IV metoprolol, which did result in overcorrection of her blood pressure and she did become nauseous during that time and vomited. Although she was tachycardic, she has remained hemodynamically stable and is currently on room air and will hold on lysis at that time. She is currently on heparin drip and admitted to ICU for hemodynamic monitoring overnight. Currently patient appears comfortable, and is mildly tachypneic without use of accessory muscles or labored breathing. Her heart rate does appear to be improving, and she remains hypertensive. She reports some mild shortness of breath. She currently she denies headache, dizziness, syncope, sore throat or recent illness, fevers, chest pain or palpitations, current nausea, abdominal pain, diarrhea. She currently denies leg pain, and states that her legs are normally symmetrically swollen and at their normal state. Attending Physician: Christian Painting MD Allergies Allergy/AdvReac Type Severity Reaction Status Date / Time amlodipine Allergy Verified 09/23/21 13:33 Home Medications Medication Instructions Recorded Confirmed Type cholecalciferol (vitamin D3) 25 1,000 units PO DAILY 12/29/18 09/23/21 History mcg (1,000 unit) capsule conjugated estrogens 0.625 mg/gram See Rx Instructions PV .COMPLEX 07/27/21 09/23/21 Rx vaginal cream (Premarin) #30 gm ascorbic acid (vitamin C) 500 mg 500 mg PO DAILY 09/23/21 09/23/21 History tablet (Vitamin C) lisinopril 10 mg tablet 10 mg PO DAILY 09/23/21 09/23/21 History multivitamin 1 tab PO DAILY 09/23/21 09/23/21 History Patient History Medical History CKD (chronic kidney disease) H/O cyst of breast Uterine prolapse Surgical History H/O tooth extraction Family History Denies family history of Colon cancer Ovarian cancer Breast cancer Social History Smoking Status: Never smoker Hx Alcohol Use: No Hx Substance Use: No Preferred Language: Lithuanian Communication Ability: Effective 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 Beliefs That Will Affect Care: None Current Living Situation: Spouse Other Information That Helps Us Care for You: No Feels Safe at Home: Yes Safety Concerns: Feels Safe At This Time Assistive Devices: Review of Systems Review of Systems: All systems reviewed & are unremarkable except as noted in HPI & below Physical Exam Constitutional: cooperative and comfortable; no acute distress Eyes: PERRL, conjunctivae normal, anicteric sclerae ENMT: external ear and nose normal, oropharynx normal Neck: trachea midline, no thyromegaly Respiratory: normal respiratory effort and + tachypneic; no respiratory distress, no labored breathing, does not use accessory muscles and no cough Auscultation: lungs clear to auscultation bilaterally Cardiovascular: Rate/Rhythm: regular rhythm and + tachycardic Heart Sounds: normal S1 and normal S2; no murmur Extremities: + edema (Bilateral lower extremity edema) Gastrointestinal (Abdomen): normal bowel sounds, soft, nontender, no hepatosplenomegaly Musculoskeletal: no cyanosis or clubbing, extremities motor strength 5/5 Skin: no rashes, warm and dry Neurologic: PERRL, EOMI, accommodation nl, no face palsy, no dysarthria Psychiatric: A+Ox3, euthymic affect Results & Data Results & Data ([facility]) Vital Signs (Past 12 Hours) Vital Signs Temp Pulse Pulse Resp BP BP Pulse Ox 09/23/21 18:00 117 H 27 H 162/111 H 92 09/23/21 17:46 115 H 25 H 138/95 93 09/23/21 17:45 115 H 28 H 95 09/23/21 17:31 113 H 23 104/82 91 09/23/21 17:30 103 H 22 92 09/23/21 17:15 113 H 28 H 124/98 94 09/23/21 17:00 108 H 21 91 09/23/21 16:59 111 H 27 H 176/127 H 90 09/23/21 16:46 130 H 202/135 H 09/23/21 16:45 129 H 29 H 94 09/23/21 16:42 131 H 26 H 202/135 H 92 09/23/21 16:30 129 H 27 H 94 09/23/21 16:15 134 H 26 H 94 09/23/21 16:12 36.6 C 130 H 21 214/133 H 93 09/23/21 16:01 135 H 19 214/133 H 93 09/23/21 16:00 132 H 22 95 09/23/21 15:52 36.6 C 09/23/21 15:50 130 H 09/23/21 15:46 141 H 31 H 145/123 H 93 09/23/21 15:45 140 H 30 H 92 09/23/21 14:58 135 H 160/110 H 92 09/23/21 14:40 139 H 22 170/112 H 93 09/23/21 14:30 136 H 27 H 94 09/23/21 14:20 142 H 23 94 09/23/21 14:10 141 H 27 H 92 09/23/21 14:00 136 H 93 09/23/21 13:58 137 H 94 09/23/21 13:44 130 H 21 09/23/21 13:30 135 H 134 H 23 198/121 H 96 09/23/21 13:20 129 H 20 93 09/23/21 13:19 134 H 28 H 198/121 H 96 09/23/21 13:10 130 H 21 96 09/23/21 13:00 131 H 22 92 09/23/21 12:50 130 H 25 H 95 09/23/21 12:49 128 H 24 09/23/21 12:36 127 H 20 196/127 H 95 09/23/21 12:23 144 H 20 94 09/23/21 12:15 36.6 C 147 H 24 164/102 H 94 Coding Level of Care Code 50233 Inpt Consult Level 3 Diagnoses Elevated troponin R77.8 Cor pulmonale, acute I26.09 Dizziness R42 Pulmonary embolism I26.92 Acute cor pulmonale presence: unspecified Chronicity: acute Pulmonary embolism type: saddle Chronic kidney disease (CKD), stage III (moderate) N18.3 History of hypertension Z86.79 (1) Pulmonary embolism Acute cor pulmonale presence: unspecified Chronicity: acute Pulmonary embolism type: saddle Qualified Code(s): I26.92 - Saddle embolus of pulmonary artery without acute cor pulmonale
[2021-09-23] MEDS ORDERED: METOPROLOL TARTRATE 25 MG TAB PO STA (20:35)
[2021-09-23] MEDS: DOCUSATE SODIUM 100 MG CAP PO SCH (20:49)
[2021-09-23] MEDS: SENNA 8.6 MG TAB PO SCH (20:49)
[2021-09-23] MEDS ORDERED: NORMOSOL-R 1,000 ML IV ONE (20:55)
[2021-09-24] MEDS ORDERED: ONDANSETRON INJ 2 MG/ML 2 ML VIAL ONE (00:39)
[2021-09-24] MEDS ORDERED: ONDANSETRON INJ 2 MG/ML 2 ML VIAL IV PRN (00:54)
[2021-09-24 01:06] LABS: Hematocrit (blood only) 42.8 % (37-47); Hemoglobin 14.8 g/dL (12.0-16.0)
--- NOTE | 2021-09-24 01:27 | Procedure Note ---
Procedure Note Date of Service September 24, 2021 Note I responded to code purple in the patient's room which the patient was up to the bedside commode, and once returned to the bed, had what appeared to be a syncopal event. Per nursing report, patient became unarousable for about 20 to 30 seconds. At this time she was laying in the bed, and did not fall. Upon awakening patient was dizzy and nauseous and had episode of vomiting. Patient stated that this was exactly how she felt earlier in the emergency department when she had a similar episode. A neurological exam was performed which was benign and she denies headache. She was given Zofran for nausea. Hemodynamically she remains stable although her blood pressure did dip to the 140s systolic which she has previously been up into the low 200s. She did receive 12.5 mg metoprolol tartrate earlier this evening. Her oxygenation and respiratory status is unchanged and she remains stable on room air. Heart rate has improved and she is now sinus rhythm and the 90s. EKG was obtained which was unremarkable. Troponin and lactate are pending along with a H&H. Patient appears to be improving at this time. Will hold off on CT head for the time being as this likely favors syncope. Will certainly obtain if patient has ongoi ng symptoms or decompensates, mindful that she is on heparin drip. Closely monitor for now. Coding
[2021-09-24 02:45] LABS: Partial Thromboplastin Time 83.8 Seconds (21.0-31.0)
[2021-09-24 07:14] LABS: Basophils # (auto) 0.01 K/uL (0-0.2); Basophils % (auto) 0.1 %; Hematocrit (blood only) 44.9 % (37-47); Hemoglobin 15.1 g/dL (12.0-16.0); Immature Granulocytes # (auto) 0.03 K/uL (0.00-0.02); Immature Granulocytes % (auto) 0.3 %; Lymphocytes # (auto) 2.02 K/uL (1.2-3.4); Lymphocytes % (auto) 17.5 %; Mean Corpuscular Hemoglobin 32.1 pg (25-34); Mean Corpuscular Volume 95.3 fL (80-100); Mean Platelet Volume 10.1 fL (7.4-10.4); Monocytes # (auto) 0.94 K/uL (0.11-0.59); Monocytes % (auto) 8.1 %; Neutrophils # (auto) 8.57 K/uL (1.4-6.5); Platelet Count 207 K/uL (130-400); RDW Coefficient of Variation 14.5 % (11.5-14.5); RDW Standard Deviation 51.2 fL (36.4-46.3); Red Blood Count 4.71 M/uL (4.2-5.4); White Blood Count 11.57 K/uL (4.8-10.8)
[2021-09-24 07:32] LABS: Mean Corpuscular Hgb Conc 33.6 g/dL (32-36)
[2021-09-24 07:38] LABS: Troponin I 1.54 ng/ml (0-0.04)
[2021-09-24 08:06] LABS: BUN Creatinine Ratio 13.4 (10-20); Calcium 9.3 mg/dl (8.5-10.1); Est GFR (African American) 56.4 ml/min; Est GFR (Non-African American) 48.7 ml/min; Magnesium 2.2 mg/dl (1.7-2.4); Potassium 4.4 mmol/L (3.5-5.1)
--- NOTE | 2021-09-24 08:15 | Hospitalist Progress Note ---
Date of Service September 24, 2021 Assessment & Plan (1) Pulmonary embolism: Plan: 71 yo F w/ pMHx. of CKD III, HTN, HLD, obesity and uterine prolapse presenting with shortness of breath and found to have extensive PE and DVT. Bilateral pulmonary embolism with heart strain on CT (diagnostic ECHO) pending, without hypotension or 2L DVT found on duplex ultrasound, no clear provoking factor - PESI III on admission - Troponin I elevation to 1.8 and down trended - BNP normal - Lactate 2.9, trended up to 3.6 - BP improved. HR still elevated. - Continue heparin drip. 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 - endorses some history and recurrence of small amount of bleeding on toilet paper - She has had some cauterization done the past Vaginal bleeding likely 2/2 uterine prolapse although, although would want to further evaluate for malignancy given PE - pelvic/TV us ordered for 09/25 to further evaluate Pulmonary nodule: Incidental pulmonary nodule seen on CT scan of the chest- 4mm - Follow up with pulmonary as outpatient as warranted - Solitary nodule size: <6 mm * Low risk patients: no follow-up needed * high risk patients: optional CT at 12 months GI prophylaxis: Famotidine Dispo: ICU Diet: HH Code: Full (2) Chronic kidney disease (CKD), stage III (moderate): (3) Cor pulmonale, acute: (4) Dizziness: (5) Pulmonary nodule: (6) Elevated troponin: Admission and Anticipated Discharge Date Admission Date: September 23, 2021 Supervising Physician Co-Signing Physician Notes Resident Physician Supervision Note: I independently interviewed and examined the patient and verified the carlos history and physical, reviewed labs and image studies and agree with resident Dr. Castelan findings and care plan. Edna Stokes is doing okay today. She continues to feel short of breath with activity and was on 2L when I was talking with her this morning. She denies any chest pain, palpitations, fevers, nausea or abdominal pain. She admits to having chronic leg pain typically L>R. She was on a long car ride on September 02 but did get out and walked around. She denies any long flights, or recent weight loss. Review of Systems Review of Systems: All systems reviewed & are unremarkable except as noted in Subjective Physical Exam Constitutional: well developed and well nourished; no acute distress Eyes: PERRL, conjunctivae normal, anicteric sclerae ENMT: external ear and nose normal, oropharynx normal Neck: normal visual inspection Respiratory: normal respiratory effort, lungs clear to auscultation Cardiovascular: Rate/Rhythm: regular rhythm and + tachycardic Extremities: + pedal edema and + edema Gastrointestinal (Abdomen): normal bowel sounds, soft, nontender, no hepatosplenomegaly Skin: no rashes, warm and dry Neurologic: no focal motor deficits Psychiatric: Orientation: alert Eye Contact: good eye contact Speech: normal rate/rhythm/volume of speech Results & Data Results & [facility] ([facility]) Vital Signs (Past 12 Hours) Vital Signs Temp Pulse Resp BP Pulse Ox 09/24/21 06:40 94 H 23 100 09/24/21 06:30 97 H 23 165/101 H 100 09/24/21 06:20 98 H 21 100 09/24/21 06:10 100 H 20 100 09/24/21 06:00 103 H 22 165/109 H 100 09/24/21 05:50 105 H 23 100 09/24/21 05:46 102 H 23 171/101 H 100 09/24/21 05:40 108 H 27 H 185/124 H 100 09/24/21 05:33 125 H 31 H 86 L 09/24/21 05:20 123 H 28 H 95 09/24/21 05:10 98 H 25 H 100 09/24/21 05:00 101 H 21 182/114 H 100 09/24/21 04:50 98 H 27 H 99 09/24/21 04:40 97 H 27 H 100 09/24/21 04:31 98 H 23 181/115 H 99 09/24/21 04:30 99 H 19 99 09/24/21 04:20 95 H 26 H 99 09/24/21 04:10 94 H 24 99 09/24/21 04:00 95 H 20 160/107 H 98 09/24/21 03:50 92 H 21 97 09/24/21 03:40 90 22 98 09/24/21 03:30 94 H 22 163/101 H 98 09/24/21 03:20 93 H 25 H 99 09/24/21 03:10 94 H 26 H 98 09/24/21 03:01 95 H 26 H 173/110 H 100 09/24/21 03:00 94 H 22 99 09/24/21 02:50 94 H 25 H 100 09/24/21 02:40 94 H 27 H 100 09/24/21 02:30 96 H 23 184/113 H 100 09/24/21 02:20 97 H 26 H 100 09/24/21 02:16 102 H 27 H 173/117 H 100 09/24/21 02:10 98 H 26 H 100 09/24/21 02:01 97 H 27 H 100 09/24/21 02:00 96 H 27 H 99 09/24/21 01:50 98 H 28 H 100 09/24/21 01:40 94 H 26 H 100 09/24/21 01:30 96 H 26 H 154/105 H 99 09/24/21 01:20 95 H 30 H 100 09/24/21 01:10 94 H 29 H 152/101 H 99 09/24/21 01:00 36.7 C 96 H 32 H 159/105 H 99 09/24/21 00:51 99 H 30 H 159/107 H 97 09/24/21 00:50 99 H 26 H 96 09/24/21 00:43 93 09/24/21 00:42 96 H 31 H 153/104 H 94 09/24/21 00:40 99 H 34 H 94 09/24/21 00:36 78 26 H 142/80 H 93 09/24/21 00:34 111 H 23 93 09/24/21 00:20 108 H 23 96 09/24/21 00:10 106 H 31 H 95 09/24/21 00:00 37.1 C 106 H 29 H 148/98 H 94 09/23/21 23:50 102 H 25 H 97 09/23/21 23:40 102 H 30 H 95 09/23/21 23:30 103 H 31 H 96 09/23/21 23:20 103 H 28 H 95 09/23/21 23:10 105 H 25 H 96 09/23/21 23:01 106 H 19 174/110 H 97 09/23/21 23:00 105 H 28 H 96 09/23/21 22:50 111 H 25 H 96 09/23/21 22:40 108 H 28 H 95 09/23/21 22:30 107 H 32 H 96 09/23/21 22:20 107 H 30 H 96 09/23/21 22:10 109 H 25 H 96 09/23/21 22:00 114 H 27 H 201/127 H 95 09/23/21 21:50 114 H 30 H 96 09/23/21 21:40 115 H 31 H 96 09/23/21 21:30 115 H 26 H 96 09/23/21 21:20 113 H 28 H 96 09/23/21 21:10 116 H 25 H 94 09/23/21 21:00 121 H 23 208/128 H 95 09/23/21 20:50 113 H 29 H 95 09/23/21 20:40 125 H 35 H 92 09/23/21 20:30 116 H 33 H 96 09/23/21 20:24 113 H 7 L CBC Results Results Complete Blood Count Results: RBC 4.44 M/uL (4.2-5.4) 09/24/21 WBC 12.03 K/uL (4.8-10.8) H 09/24/21 Hgb 14.5 g/dL (12.0-16.0) 09/24/21 Hct 42.2 % (37-47) 09/24/21 Plt Count 192 K/uL (130-400) 09/24/21 Chemistry (BMP) Results BMP Results: Sodium 141 mmol/L (136-145) 09/24/21 Potassium 4.4 mmol/L (3.5-5.1) 09/24/21 Chloride 106 mmol/L (98-107) 09/24/21 Carbon Dioxide 25 mmol/L (21-32) 09/24/21 Anion Gap 10 (3-11) 09/24/21 BUN 15 mg/dl (6-23) 09/24/21 Creatinine 1.12 mg/dl (0.6-1.2) 09/24/21 Glucose 145 mg/dl (70-99(Fasting)) H 09/24/21 Resident Activity Tracking Resident Involvement: Resident Care Provided Care Provided: Adult Hospital Medicine (1) Pulmonary embolism Acute cor pulmonale presence: unspecified Chronicity: acute Pulmonary embolism type: saddle Qualified Code(s): I26.92 - Saddle embolus of pulmonary artery without acute cor pulmonale
[2021-09-24] MEDS ORDERED: lisinopril 10 MG TAB PO SCH (09:00)
[2021-09-24] MEDS: DOCUSATE SODIUM 100 MG CAP PO SCH ×2 (09:06→21:08)
[2021-09-24] MEDS: FAMOTIDINE 20 MG in SYRINGE 3 ML IV SCH ×2 (09:06→21:07)
--- NOTE | 2021-09-24 09:41 | Critical Care Progress Note ---
Date of Service September 24, 2021 Assessment & Plan (1) Pulmonary embolism: Plan: Impression: 71-year-old female presents to the ICU with acute PE with evidence of cor pulmonale, currently on heparin drip and to undergo continuous hemodynamic monitoring as patient is high risk for decompensation which would require lysis. Neuro - [facility] ICU: Negative Cardiac - Cor pulmonale secondary to saddle PEevidence of right heart strain on CT and elevated troponin. Low threshold for lysis if patient becomes hemodynamically unstable. -echo being completed in room. Repeat limited on Saturday -Trend troponins -Holding antihypertensives History of HTNhold lisinopril for now Respiratory - Acute pulmonary embolism -Delayed quarter dose TPA infusion -TPA 1 mg/h infusion x25 hours -Heparin 5 units/kg infusion to run concurrently -Fibrinogen and PTT every 6 hours -start Lovenox 1 mg/kg twice daily after heparin infusion -Continuous monitoring on pulse ox GI - Heart healthy diet Famotidine RENAL/LYTES - CKD stage IIIcreatinine currently stable -Holding lisinopril Lactic acid acidosis -500 mg IV thiamine given yesterday -100 mg thiamine daily [facility] - No history of diabetes or thyroid disease -Hemoglobin A1c ICU hyperglycemic protocol HEME - H&H stable, no evidence of bleeding. Monitor routine CBCs ID - No negation for infectious process at this time LINES/IV ACCESS - Peripheral IVs DVT PROPHYLAXIS - Mechanical prophylaxis contraindicated secondary to DVT -Lovenox 1 mg/kg twice daily to start after TPA infusion (2) Elevated troponin: (3) Cor pulmonale, acute: (4) Dizziness: (5) Chronic kidney disease (CKD), stage III (moderate): (6) History of hypertension: Admission and Anticipated Discharge Date Admission Date: September 23, 2021 Supervising Physician Co-Signing Physician Notes I have personally spent 70 minutes of critical care time in the direct managemen t of this patient. This is a life/limb threatening event. This includes time spent evaluating patient, direct bedside care, chart review, placing orders, interpretation of diagnostic studies, discussion with consultants, patient, and/or family members regarding treatment decisions, as well as other required patient management activities. This time is exclusive of all separately billable procedures, and teaching time and separate from and in addition to any other critical care service time. Subjective Overnight patient had a syncopal event while sitting on the commode. She still has exertional dyspnea, denies chest pain. We had an extensive discussion regarding risks and benefits of catheter directed TPA versus delayed TPA infusion versus full dose versus half dose TPA. Patient still experiencing evidence of some hemodynamic compromise with an elevated lactate, therefore I think it is reasonable to entertain systemic thrombolysis. There was noted possibility of pulmonary infarct, the patient has not admitting to hemoptysis, she does not have GI bleeding, no recent surgery no other high risk characteristics beyond age so I think it is reasonable to consider a lower dose TPA for bleeding risks. Patient is agreeable and consents. Patient reports she was recently diagnosed with hypertension and started on antihypertensive medication. She states her blood pressure normally is around 150/90 prior to starting medication which she has been on it for approximately 4 weeks Review of Systems Review of Systems: As per the HPI otherwise negative Physical Exam Physical Exam: General: Alert. nontoxic. Skin: Warm, dry, Head: Atraumatic Ears, nose, mouth and throat: airway patent Cardiovascular: Normal peripheral perfusion, sinus tachycardia on bedside monitor Respiratory: no respiratory distress, mild tachypnea Gastrointestinal: Non distended Musculoskeletal: No deformity Results & Data Results & Data ([facility]) Vital Signs (Past 12 Hours) Vital Signs Temp Pulse Pulse Resp BP Pulse Ox 09/24/21 09:14 104 H 29 H 164/104 H 98 09/24/21 09:00 107 H 110 H 24 99 09/24/21 08:30 105 H 22 169/97 H 100 09/24/21 08:01 107 H 26 H 180/103 H 100 09/24/21 08:00 36.5 C 107 H 26 H 100 09/24/21 07:30 110 H 28 H 165/113 H 95 09/24/21 07:01 98 H 24 152/109 H 99 09/24/21 07:00 96 H 27 H 100 09/24/21 06:40 94 H 23 100 09/24/21 06:30 97 H 23 165/101 H 100 09/24/21 06:20 98 H 21 100 09/24/21 06:10 100 H 20 100 09/24/21 06:00 103 H 22 165/109 H 100 09/24/21 05:50 105 H 23 100 09/24/21 05:46 102 H 23 171/101 H 100 09/24/21 05:40 108 H 27 H 185/124 H 100 04/10/22 05:33 125 H 31 H 86 L 09/24/21 05:20 123 H 28 H 95 09/24/21 05:10 98 H 25 H 100 09/24/21 05:00 101 H 21 182/114 H 100 09/24/21 04:50 98 H 27 H 99 09/24/21 04:40 97 H 27 H 100 09/24/21 04:31 98 H 23 181/115 H 99 09/24/21 04:30 99 H 19 99 09/24/21 04:20 95 H 26 H 99 09/24/21 04:10 94 H 24 99 09/24/21 04:00 95 H 20 160/107 H 98 09/24/21 03:50 92 H 21 97 09/24/21 03:40 90 22 98 09/24/21 03:30 94 H 22 163/101 H 98 09/24/21 03:20 93 H 25 H 99 09/24/21 03:10 94 H 26 H 98 09/24/21 03:01 95 H 26 H 173/110 H 100 09/24/21 03:00 94 H 22 99 09/24/21 02:50 94 H 25 H 100 09/24/21 02:40 94 H 27 H 100 09/24/21 02:30 96 H 23 184/113 H 100 09/24/21 02:20 97 H 26 H 100 09/24/21 02:16 102 H 27 H 173/117 H 100 09/24/21 02:10 98 H 26 H 100 09/24/21 02:01 97 H 27 H 100 09/24/21 02:00 96 H 27 H 99 09/24/21 01:50 98 H 28 H 100 09/24/21 01:40 94 H 26 H 100 09/24/21 01:30 96 H 26 H 154/105 H 99 09/24/21 01:20 95 H 30 H 100 09/24/21 01:10 94 H 29 H 152/101 H 99 09/24/21 01:00 36.7 C 96 H 32 H 159/105 H 99 09/24/21 00:51 99 H 30 H 159/107 H 97 09/24/21 00:50 99 H 26 H 96 09/24/21 00:43 93 09/24/21 00:42 96 H 31 H 153/104 H 94 09/24/21 00:40 99 H 34 H 94 09/24/21 00:36 78 26 H 142/80 H 93 09/24/21 00:34 111 H 23 93 09/24/21 00:20 108 H 23 96 09/24/21 00:10 106 H 31 H 95 09/24/21 00:00 37.1 C 106 H 29 H 148/98 H 94 09/23/21 23:50 102 H 25 H 97 09/23/21 23:40 102 H 30 H 95 09/23/21 23:30 103 H 31 H 96 09/23/21 23:20 103 H 28 H 95 09/23/21 23:10 105 H 25 H 96 09/23/21 23:01 106 H 19 174/110 H 97 09/23/21 23:00 105 H 28 H 96 09/23/21 22:50 111 H 25 H 96 09/23/21 22:40 108 H 28 H 95 09/23/21 22:30 107 H 32 H 96 09/23/21 22:20 107 H 30 H 96 09/23/21 22:10 109 H 25 H 96 09/23/21 22:00 114 H 27 H 201/127 H 95 09/23/21 21:50 114 H 30 H 96 09/23/21 21:40 115 H 31 H 96 Critical Care Results & Data Vital Signs (Past 12 Hours) Vital Signs Temp Pulse Pulse Resp BP Pulse Ox 09/24/21 10:00 105 H 23 159/112 H 100 09/24/21 09:31 105 H 29 H 154/87 H 100 09/24/21 09:30 106 H 28 H 100 09/24/21 09:14 104 H 29 H 164/104 H 98 09/24/21 09:00 107 H 110 H 24 99 09/24/21 08:30 105 H 22 169/97 H 100 09/24/21 08:01 107 H 26 H 180/103 H 100 09/24/21 08:00 36.5 C 107 H 26 H 100 09/24/21 07:30 110 H 28 H 165/113 H 95 09/24/21 07:01 98 H 24 152/109 H 99 09/24/21 07:00 96 H 27 H 100 09/24/21 06:40 94 H 23 100 09/24/21 06:30 97 H 23 165/101 H 100 09/24/21 06:20 98 H 21 100 09/24/21 06:10 100 H 20 100 09/24/21 06:00 103 H 22 165/109 H 100 09/24/21 05:50 105 H 23 100 09/24/21 05:46 102 H 23 171/101 H 100 09/24/21 05:40 108 H 27 H 185/124 H 100 09/24/21 05:33 125 H 31 H 86 L 09/24/21 05:20 123 H 28 H 95 09/24/21 05:10 98 H 25 H 100 09/24/21 05:00 101 H 21 182/114 H 100 09/24/21 04:50 98 H 27 H 99 09/24/21 04:40 97 H 27 H 100 09/24/21 04:31 98 H 23 181/115 H 99 09/24/21 04:30 99 H 19 99 09/24/21 04:20 95 H 26 H 99 09/24/21 04:10 94 H 24 99 09/24/21 04:00 95 H 20 160/107 H 98 09/24/21 03:50 92 H 21 97 09/24/21 03:40 90 22 98 09/24/21 03:30 94 H 22 163/101 H 98 09/24/21 03:20 93 H 25 H 99 09/24/21 03:10 94 H 26 H 98 09/24/21 03:01 95 H 26 H 173/110 H 100 09/24/21 03:00 94 H 22 99 09/24/21 02:50 94 H 25 H 100 09/24/21 02:40 94 H 27 H 100 09/24/21 02:30 96 H 23 184/113 H 100 09/24/21 02:20 97 H 26 H 100 09/24/21 02:16 102 H 27 H 173/117 H 100 09/24/21 02:10 98 H 26 H 100 09/24/21 02:01 97 H 27 H 100 09/24/21 02:00 96 H 27 H 99 09/24/21 01:50 98 H 28 H 100 09/24/21 01:40 94 H 26 H 100 09/24/21 01:30 96 H 26 H 154/105 H 99 09/24/21 01:20 95 H 30 H 100 09/24/21 01:10 94 H 29 H 152/101 H 99 09/24/21 01:00 36.7 C 96 H 32 H 159/105 H 99 09/24/21 00:51 99 H 30 H 159/107 H 97 09/24/21 00:50 99 H 26 H 96 09/24/21 00:43 93 09/24/21 00:42 96 H 31 H 153/104 H 94 09/24/21 00:40 99 H 34 H 94 09/24/21 00:36 78 26 H 142/80 H 93 09/24/21 00:34 111 H 23 93 09/24/21 00:20 108 H 23 96 09/24/21 00:10 106 H 31 H 95 09/24/21 00:00 37.1 C 106 H 29 H 148/98 H 94 09/23/21 23:50 102 H 25 H 97 09/23/21 23:40 102 H 30 H 95 09/23/21 23:30 103 H 31 H 96 09/23/21 23:20 103 H 28 H 95 09/23/21 23:10 105 H 25 H 96 09/23/21 23:01 106 H 19 174/110 H 97 09/23/21 23:00 105 H 28 H 96 09/23/21 22:50 111 H 25 H 96 09/23/21 22:40 108 H 28 H 95 Lab & Micro Results (Past 24 Hours) RBC 4.71 M/uL (4.2-5.4) 09/24/21 WBC 11.57 K/uL (4.8-10.8) H 09/24/21 Hgb 15.1 g/dL (12.0-16.0) 09/24/21 Hct 44.9 % (37-47) 09/24/21 MCV 95.3 fL (80-100) 09/24/21 MCH 32.1 pg (25-34) 09/24/21 MCHC 33.6 g/dL (32-36) 09/24/21 RDW Standard Deviation 51.2 fL (36.4-46.3) H 09/24/21 RDW Coefficient of Variation 14.5 % (11.5-14.5) 09/24/21 Plt Count 207 K/uL (130-400) 09/24/21 MPV 10.1 fL (7.4-10.4) 09/24/21 Neutrophils (%) (Auto) 74.0 % 09/24/21 Lymphocytes (%) (Auto) 17.5 % 09/24/21 Monocytes # (Auto) 0.94 K/uL (0.11-0.59) H 09/24/21 Eosinophils # (Auto) 0.00 K/uL (0-0.5) 09/24/21 Immature Granulocyte % (Auto) 0.3 % 09/24/21 Neutrophils # (Auto) 8.57 K/uL (1.4-6.5) H 09/24/21 Lymphocytes # (Auto) 2.02 K/uL (1.2-3.4) 09/24/21 Monocytes # (Auto) 0.94 K/uL (0.11-0.59) H 09/24/21 Eosinophils # (Auto) 0.00 K/uL (0-0.5) 09/24/21 Basophils # (Auto) 0.01 K/uL (0-0.2) 09/24/21 Immature Granulocyte # (Auto) 0.03 K/uL (0.00-0.02) H 09/24/21 Na 141 mmol/L (136-145) 09/24/21 K 4.4 mmol/L (3.5-5.1) 09/24/21 Cl 106 mmol/L (98-107) 09/24/21 CO2 25 mmol/L (21-32) 09/24/21 Anion Gap 10 (3-11) 09/24/21 BUN 15 mg/dl (6-23) 09/24/21 Creatinine 1.12 mg/dl (0.6-1.2) 09/24/21 Estimated GFR ( Amer) 56.4 ml/min 09/24/21 Estimated GFR (Non-Af Amer) 48.7 ml/min 09/24/21 BUN/Creatinine Ratio 13.4 (10-20) 09/24/21 Glu 145 mg/dl (70-99(Fasting)) H 09/24/21 Ca 9.3 mg/dl (8.5-10.1) 09/24/21 Total Bilirubin 0.6 mg/dl (0.2-1.0) 09/23/21 AST 39 U/L (13-39) 09/23/21 ALT 43 U/L (7-52) 09/23/21 Alkaline Phosphatase 84 U/L (34-104) 09/23/21 TP 7.9 gm/dl (6.0-8.3) 09/23/21 Albumin 4.6 gm/dl (3.4-5.0) 09/23/21 Globulin 3.3 gm/dl (2.5-4.0) 09/23/21 Albumin/Globulin Ratio 1.4 (0.9-2) 09/23/21 Mg 2.2 mg/dl (1.7-2.4) 09/24/21 06:53 09/24/21 Calcium Level 9.3 mg/dl (8.5-10.1) 09/24/21 06:53 09/24/21 Prothromb Time International Ratio 1.1 (0.9-1.1) 09/23/21 16:05 09/23/21 Diagnostic Findings (Past 24 Hours) Chest X-Ray 09/23/21 12:23 XR chest 1V portable HISTORY: Atypical Chest Pain COMPARISON: None. FINDINGS: No pleural effusions. No pneumothorax. The heart is normal in size. No evidence for pulmonary edema. No rib fractures identified. No focal lung consolidations to suggest pneumonia. Coarse interstitial markings at the lung apices which is likely chronic. IMPRESSION: No acute process within the chest. ACT 112: Negative or not required by law. Electronically signed by: Johnathan Stark M.D. 09/23/2021 1:10 PM Chest CTA 09/23/21 13:23 CHEST CTA for PULMONARY ARTERIES CT DOSE: 424.02 mGy.cm HISTORY: Atypical chest pain. Assess for pulmonary embolus. TECHNIQUE: Multiaxial CT images of the chest were performed following the intravenous administration of contrast to evaluate the pulmonary arteries. Maximal intensity projection images were also obtained. A dose lowering technique was utilized adhering to the principles of ALARA. COMPARISON STUDY: None. FINDINGS: Limited views of the upper abdomen demonstrate normal liver and spleen. Normal esophagus. The thyroid gland enhances normally. No pleural or pericardial effusions. No mediastinal or hilar lymphadenopathy. Normal caliber thoracic aorta with no evidence for dissection. There is flattening of the interventricular septum with dilatation of the right ventricle consistent with right-sided heart strain. There is a saddle embolus at the main pulmonary arteries with extensive bilateral pulmonary emboli. No suspicious lytic or blastic osseous lesions. No pneumothorax. Mild biapical pleural-parenchymal densities which favor scarring chronic interstitial change. There is a 4 mm nodule within the right lung apex on image 194. Small faint groundglass density within the periphery the right lower lobe on image 90 may represent scarring or a developing pulmonary infarct. IMPRESSION: 1. Extensive bilateral pulmonary emboli including a saddle embolus at the main pulmonary arteries. There is associated right-sided heart strain. 2. Small faint groundglass density within the periphery of the right lower lobe which may represent scarring or a developing pulmonary infarct. 3. A 4 mm indeterminate pulmonary nodule within the right lung apex. Please refer to below summary of Fleischner criteria recommendations for follow- up of incidental CT nodules (Minor Hawley, Guidelines for management of small pulmonary nodules detected on CT scans: A statement from the Fleischner Society, Radiology 237: [phone].) SOLID NODULES Solitary nodule size: <6 mm * Low risk patients: no follow-up needed * high risk patients: optional CT at 12 months Solitary nodule size: 6-8 mm * Low risk patients: follow-up at 6-12 months, then consider further follow-up at 18-24 months * high risk patients: initial follow-up CT at 6-12 months and then at 18-24 months if no change Solitary nodule size: >8 mm * either low or high risk patients - consider follow-up CT at 3 months, and/or CT-PET, and/or biopsy Multiple nodules size: <6 mm * Low risk patients: no routine follow-up * high risk patients: optional CT at 12 months Multiple nodules size: 6-8 mm * Low risk patients: follow-up at 3-6 months, then consider further follow-up at 18-24 months * high risk patients: follow-up at 3-6 months, then at 18-24 months if no ch laz Multiple nodules size: >8 mm * Low risk patients: follow-up at 3-6 months, then consider further follow-up at 18-24 months * high risk patients: follow-up at 3-6 months, then at 18-24 months if no change Note: newly detected indeterminate nodule in persons 35 years of age or older. * Low risk patients: minimal or absent history of smoking and/or other known risk factors * high risk patients: history of smoking or of other known risk factors (e.g. first degree relative with lung cancer, or exposure to asbestos, radon, uranium) * if a nodule up to 8 mm is partly solid or is ground glass further follow-up is required after 24 months to exclude possible slow growing adenocarcinoma (ISMAEL) SUBSOLID NODULES Solitary pure ground-glass nodule * nodule size <6 mm - no CT follow-up required * nodule size >=6 mm - follow-up CT at 6-12 months, then every 2 years until 5 years Solitary part-solid nodule * nodule size <6 mm - no CT follow-up required * nodule size >=6 mm - follow-up CT at 3-6 months. If unchanged, and solid component remains <6 mm, then annual follow-up for 5 years Multiple subsolid nodules * nodule size <6 mm - follow-up CT at 3-6 months, consider further follow-up at 2 and 4 years if stable * nodule size >=6 mm - follow-up CT at 3-6 months, subsequent management based on the most suspicious nodule(s) ACT 112: Negative or not required by law. Electronically signed by: Johnathan Stark M.D. 09/23/2021 1:50 PM Venous Doppler Study 09/23/21 15:52 BILATERAL LOWER EXTREMITY VENOUS DOPPLER HISTORY: Leg pain. Pulmonary embolus. Assess for DVT. COMPARISON STUDY: None. FINDINGS: There is normal compressibility, flow, and augmentation within the right lower extremity deep venous system. The left common femoral and superficial femoral veins are patent. There is occlusive thrombus identified within the left popliteal, posterior tibial, and peroneal veins. The left anterior tibial veins are patent. IMPRESSION: 1. Left lower extremity DVT as described above. 2. No right lower extremity DVT. ACT 112: Negative or not required by law. Electronically signed by: Johnathan Stark M.D. 09/23/2021 7:19 PM I & O Totals 24 Hours 09/23/21 09/24/21 09/25/21 06:59 06:59 06:59 Intake Total 2324.766 / 2324.766 220 / 220 Output Total 550 / 550 325 / 325 Balance 1774.766 / 1774.766 -105 / -105 Cumulative 09/23/21 12:02 thru 09/24/21 09:17 Intake Total 2544.766 Output Total 875 Balance 1669.766 RT Ventilator Mngmt (Last Documented) Ventilator Ordered Settings Respiratory Rate 23 09/24/21 10:00 Ventilator - PT Measurements Respiratory Rate 23 Coding Level of Care Code Critical Care 1st 30-74 mins Diagnoses Pulmonary embolism I26.92 Acute cor pulmonale presence: unspecified Chronicity: acute Pulmonary embolism type: saddle Elevated troponin R77.8 Cor pulmonale, acute I26.09 Dizziness R42 Chronic kidney disease (CKD), stage III (moderate) N18.3 History of hypertension Z86.79 (1) Pulmonary embolism Acute cor pulmonale presence: unspecified Chronicity: acute Pulmonary embolism type: saddle Qualified Code(s): I26.92 - Saddle embolus of pulmonary artery without acute cor pulmonale
[2021-09-24] MEDS ORDERED: CONSULT PHARMACY STA ×2 (10:07→10:11)
[2021-09-24 10:16] LABS: Partial Thromboplastin Ratio 2.9
[2021-09-24 10:33] LABS: Partial Thromboplastin Time 79.4 Seconds (21.0-31.0)
--- NOTE | 2021-09-24 10:47 | Electrocardiogram Report ---
Test Reason : Blood Pressure : / mmHG Vent. Rate : 137 BPM Atrial Rate : 137 BPM P-R Int : 136 ms QRS Dur : 076 ms QT Int : 280 ms P-R-T Axes : 067 025 -25 degrees QTc Int : 422 ms Sinus tachycardia with Premature ventricular complexes or Fusion complexes Possible Left atrial enlargement Nonspecific ST and T wave abnormality Abnormal ECG No previous ECGs available Confirmed by Kash Atkins ([id number]) on 09/24/2021 10:47:25 AM Referred By: REFERRED SELF Confirmed By:Kash Atkins
--- NOTE | 2021-09-24 11:12 | Electrocardiogram Report ---
Test Reason : Blood Pressure : / mmHG Vent. Rate : 099 BPM Atrial Rate : 099 BPM P-R Int : 142 ms QRS Dur : 070 ms QT Int : 358 ms P-R-T Axes : 072 041 108 degrees QTc Int : 459 ms Normal sinus rhythm Abnormal ECG When compared with ECG of 23-SEP-2021 12:27, (unconfirmed) Premature ventricular complexes are no longer Present ST no longer depressed in Inferior leads T wave inversion more evident in Anterior leads Confirmed by Kash Atkins ([id number]) on 09/24/2021 11:12:36 AM Referred By: REFERRED SELF Confirmed By:Kash Atkins
[2021-09-24] MEDS: RECOMBINANT IV SCH ×3 (11:17→21:08)
[2021-09-24] MEDS: SODIUM CHLORIDE 0.9% IV SCH ×3 (11:17→21:08)
[2021-09-24] MEDS: ALTEPLASE IV SCH ×3 (11:17→21:08)
[2021-09-24] MEDS: HEPARIN SODIUM/DEXTROSE 25,000 UNIT/500 ML BAG IV SCH ×2 (11:18→22:02)
--- NOTE | 2021-09-24 11:21 | Electrocardiogram Report ---
Test Reason : Blood Pressure : / mmHG Vent. Rate : 109 BPM Atrial Rate : 109 BPM P-R Int : 138 ms QRS Dur : 072 ms QT Int : 316 ms P-R-T Axes : 065 020 157 degrees QTc Int : 425 ms Poor data quality, interpretation may be adversely affected Sinus tachycardia Abnormal ECG When compared with ECG of 24-SEP-2021 00:39, (unconfirmed) No significant change was found Confirmed by Kash Atkins ([id number]) on 09/24/2021 11:21:25 AM Referred By: REFERRED SELF Confirmed By:Kash Atkisn
--- NOTE | 2021-09-24 11:31 | XCELERA ---
[id number]\[id number]
[2021-09-24] MEDS: THIAMINE HCL 100 MG TAB PO SCH (11:42)
[2021-09-24] MEDS: MULTIVITAMIN TAB PO SCH (11:42)
[2021-09-24 16:50] LABS: Basophils # (auto) 0.04 K/uL (0-0.2); Basophils % (auto) 0.3 %; Eosinophils # (auto) 0.03 K/uL (0-0.5); Eosinophils % (auto) 0.2 %; Hematocrit (blood only) 42.2 % (37-47); Hemoglobin 14.5 g/dL (12.0-16.0); Immature Granulocytes # (auto) 0.03 K/uL (0.00-0.02); Immature Granulocytes % (auto) 0.2 %; Lymphocytes # (auto) 2.88 K/uL (1.2-3.4); Lymphocytes % (auto) 23.9 %; Mean Corpuscular Hemoglobin 32.7 pg (25-34); Mean Corpuscular Hgb Conc 34.4 g/dL (32-36); Mean Platelet Volume 9.8 fL (7.4-10.4); Monocytes # (auto) 1.14 K/uL (0.11-0.59); Monocytes % (auto) 9.5 %; Neutrophils # (auto) 7.91 K/uL (1.4-6.5); Neutrophils % (auto) 65.9 %; Platelet Count 192 K/uL (130-400); RDW Coefficient of Variation 14.8 % (11.5-14.5); RDW Standard Deviation 51.5 fL (36.4-46.3); Red Blood Count 4.44 M/uL (4.2-5.4); White Blood Count 12.03 K/uL (4.8-10.8)
[2021-09-24 17:01] LABS: Fibrinogen 396 mg/dl (184-400); Partial Thromboplastin Ratio 1.2; Partial Thromboplastin Time 32.8 Seconds (21.0-31.0)
[2021-09-24] MEDS: SENNA 8.6 MG TAB PO SCH (21:08)
[2021-09-24 22:28] LABS: Basophils # (auto) 0.02 K/uL (0-0.2); Basophils % (auto) 0.2 %; Eosinophils # (auto) 0.06 K/uL (0-0.5); Eosinophils % (auto) 0.6 %; Hematocrit (blood only) 37.1 % (37-47); Hemoglobin 12.7 g/dL (12.0-16.0); Immature Granulocytes # (auto) 0.01 K/uL (0.00-0.02); Immature Granulocytes % (auto) 0.1 %; Lymphocytes # (auto) 2.73 K/uL (1.2-3.4); Lymphocytes % (auto) 28.8 %; Mean Corpuscular Hemoglobin 32.6 pg (25-34); Mean Corpuscular Hgb Conc 34.2 g/dL (32-36); Mean Corpuscular Volume 95.1 fL (80-100); Mean Platelet Volume 9.9 fL (7.4-10.4); Monocytes # (auto) 0.77 K/uL (0.11-0.59); Monocytes % (auto) 8.1 %; Neutrophils # (auto) 5.88 K/uL (1.4-6.5); Neutrophils % (auto) 62.2 %; Platelet Count 185 K/uL (130-400); RDW Coefficient of Variation 14.9 % (11.5-14.5); RDW Standard Deviation 51.7 fL (36.4-46.3); White Blood Count 9.47 K/uL (4.8-10.8)
[2021-09-24 22:52] LABS: Fibrinogen 346 mg/dl (184-400); Partial Thromboplastin Ratio 1.2
[2021-09-25] MEDS: RECOMBINANT IV SCH ×2 (02:03→07:06)
[2021-09-25] MEDS: SODIUM CHLORIDE 0.9% IV SCH ×2 (02:03→07:06)
[2021-09-25] MEDS: ALTEPLASE IV SCH ×2 (02:03→07:06)
[2021-09-25 04:52] LABS: Basophils # (auto) 0.02 K/uL (0-0.2); Basophils % (auto) 0.2 %; Eosinophils # (auto) 0.07 K/uL (0-0.5); Eosinophils % (auto) 0.8 %; Hematocrit (blood only) 38.3 % (37-47); Hemoglobin 12.6 g/dL (12.0-16.0); Immature Granulocytes # (auto) 0.02 K/uL (0.00-0.02); Immature Granulocytes % (auto) 0.2 %; Lymphocytes # (auto) 1.93 K/uL (1.2-3.4); Mean Corpuscular Hemoglobin 31.5 pg (25-34); Mean Corpuscular Hgb Conc 32.9 g/dL (32-36); Mean Corpuscular Volume 95.8 fL (80-100); Mean Platelet Volume 10.2 fL (7.4-10.4); Monocytes # (auto) 0.92 K/uL (0.11-0.59); Monocytes % (auto) 10.5 %; Neutrophils % (auto) 66.3 %; Platelet Count 184 K/uL (130-400); RDW Coefficient of Variation 14.8 % (11.5-14.5); RDW Standard Deviation 52.1 fL (36.4-46.3); White Blood Count 8.76 K/uL (4.8-10.8)
[2021-09-25 05:10] LABS: Fibrinogen 370 mg/dl (184-400); Partial Thromboplastin Ratio 1.2; Partial Thromboplastin Time 32.2 Seconds (21.0-31.0)
[2021-09-25 05:17] LABS: BUN Creatinine Ratio 15.6 (10-20); Calcium 8.8 mg/dl (8.5-10.1); Creatinine Clr Calc Pharmacy 48.3 ml/min; Est GFR (African American) 58.3 ml/min; Est GFR (Non-African American) 50.3 ml/min; Magnesium 2.1 mg/dl (1.7-2.4); Potassium 3.9 mmol/L (3.5-5.1)
[2021-09-25] MEDS ORDERED: POTASSIUM CHLORIDE CRTAB 20 MEQ TABCR PO STA (05:59)
--- NOTE | 2021-09-25 06:49 | Hospitalist Progress Note ---
Date of Service September 25, 2021 Assessment & Plan (1) Pulmonary embolism: Plan: 71 yo F w/ pMHx. of CKD III, HTN, HLD, obesity and uterine prolapse presenting with shortness of breath and found to have extensive PE and DVT. Bilateral pulmonary embolism -- with heart strain on CT (diagnostic ECHO) pending, without hypotension, on 2L NC DVT found on duplex ultrasound, no clear provoking factor - PESI III on admission - Troponin I elevation to 1.8 and downtrended - BNP normal - BP elevated, tachycardic - Continue heparin drip -- change to therapeutic dose once alteplase infusion is done per ICU - On TPA per ICU over the weekend Chronic kidney disease (CKD), stage III: CKD stable with baseline EVP [place] around 1.1 - Current cr. 1.09 - Continue to follow Hypertension: Recently started on Lisinopril 10mg PO daily - initially held, now continued - BP significantly elevated -- check catecholamines per ICU - Hydralazine prn SBP >180 - Try to avoid pure beta-blockers. Labetalol or Coreg can still be used. Hypercholesterolemia: Not on therapy at home Uterine prolapse: With Pessary- follows [employer] - endorses some history and recurrence of small amount of bleeding on toilet paper - She has had some cauterization done the past Vaginal bleeding: likely 2/2 uterine prolapse although, although would want to further evaluate for malignancy given PE - pelvic/TVUS ordered but unable to be done over weekend -- will hold at this time as patient on heparin, TPA, and clinically guarded Pulmonary nodule: Incidental pulmonary nodule seen on CT scan of the chest, 4mm in size - Follow up with pulmonary as outpatient as warranted - Solitary nodule size: <6 mm * Low risk patients: no follow-up needed * high risk patients: optional CT at 12 months DVT prophylaxis: On heparin as above Dispo: ICU FEN/GI: Heart healthy, Famotidine for ppx Code: Full (2) Chronic kidney disease (CKD), stage III (moderate): (3) Cor pulmonale, acute: (4) Dizziness: (5) Pulmonary nodule: (6) Elevated troponin: Admission and Anticipated Discharge Date Admission Date: September 23, 2021 Supervising Physician Co-Signing Physician Notes I personally examined the patient and verified all carlos points of history and exam, discussed case, and agree with decision making with Dr Munoz Feeling okay just anxious. No chest pain or shortness of breath. After discussions, she feels much calmer. Patient seen more or less immediately after thrombolytics have completed infusion. Vitals noted, in general she is awake and alert pleasant no distress. HEENT normocephalic atraumatic mucous membranes moist. Breathing unlabored no accessory muscle use good effort. Skin shows no rashes no pallor or icterus. Neuro without focal deficits. Saddle PEdoing well. Thrombolytic infusion has been completed. Continue observation, heparin, supportive care. Anticipate transition to DOAC in the near future. Markedly elevated blood pressure/hypertensionsystolic improved by about 25 points largely with discussionssuggesting that anxiety is playing a big role. Continue as needed hydralazine. continue lisionpril. Continue to follow. otherwise as above Subjective Seen at bedside. No acute events overnight, though she did report increasing BP overnight. Otherwise feels well, denying CP, palp, SOB, cough, hemoptysis, abd pain, f/c, n/v. Review of Systems Review of Systems: see subjective Physical Exam Physical Exam: GENERAL: A&Ox3. NAD. CHEST/LUNGS: CTAB A/P. No crackles, wheezes, rales, rhonchi. HEART: RRR. No m/g/r. No carotid bruits. EXTREMITIES: No cyanosis, no clubbing. 1+ edema of LLE. SKIN: Warm and dry. No rashes or lesions. PSYCHIATRIC: Euthymic affect, no SI, no pressured speech, no hallucinations NEUROLOGIC: No FND. Results & Data Results & Data ([facility]) Vital Signs (Past 12 Hours) Vital Signs Temp Pulse Resp BP Pulse Ox 09/25/21 05:30 86 19 95 09/25/21 05:00 96 H 20 172/100 H 97 09/25/21 04:30 93 H 25 H 97 09/25/21 04:00 95 H 20 180/103 H 96 09/25/21 03:30 95 H 19 94 09/25/21 03:00 36.7 C 100 H 21 198/112 H 96 09/25/21 02:30 109 H 20 95 09/25/21 02:01 95 H 25 H 177/96 H 94 09/25/21 02:00 97 H 19 96 09/25/21 01:30 88 19 96 09/25/21 01:00 93 H 23 130/88 93 09/25/21 00:30 92 H 22 95 09/25/21 00:01 97 H 16 155/101 H 97 09/25/21 00:00 94 H 22 94 09/24/21 23:30 96 H 23 94 09/24/21 23:01 91 H 21 124/63 92 09/24/21 23:00 36.8 C 90 21 91 09/24/21 22:30 91 H 23 96 09/24/21 22:10 98 H 24 179/104 H 98 09/24/21 22:00 98 H 22 161/103 H 95 09/24/21 21:30 93 H 22 98 09/24/21 21:00 100 H 19 154/89 H 94 09/24/21 20:30 101 H 25 H 97 09/24/21 20:00 103 H 23 186/105 H 96 09/24/21 19:30 101 H 27 H 100 09/24/21 19:01 107 H 28 H 192/94 H 97 09/24/21 19:00 36.8 C 107 H 24 100 Resident Activity Tracking Resident Involvement: Resident Care Provided Care Provided: Adult Hospital Medicine (1) Pulmonary embolism Acute cor pulmonale presence: unspecified Chronicity: acute Pulmonary embolism type: saddle Qualified Code(s): I26.92 - Saddle embolus of pulmonary artery without acute cor pulmonale
[2021-09-25 07:16] LABS: Estimated Average Glucose 131 mg/dl; Hemoglobin A1C 6.2 % (4.5-5.6)
[2021-09-25] MEDS: THIAMINE HCL 100 MG TAB PO SCH (07:40)
[2021-09-25] MEDS: MULTIVITAMIN TAB PO SCH (07:40)
[2021-09-25] MEDS: FAMOTIDINE 20 MG in SYRINGE 3 ML IV SCH (07:40)
[2021-09-25] MEDS: DOCUSATE SODIUM 100 MG CAP PO SCH ×2 (07:40→19:56)
--- NOTE | 2021-09-25 07:54 | Critical Care Progress Note ---
Date of Service September 25, 2021 Assessment & Plan (1) Pulmonary embolism: (2) Elevated troponin: (3) History of hypertension: (4) Chronic kidney disease (CKD), stage III (moderate): Plan: Impression: 71-year-old female presents to the ICU with acute PE with right heart strain. Patient was started on alteplase slow infusion by Dr. Stalh Neuro - [facility] ICU: Negative Cardiac - Cor pulmonale secondary to saddle PEevidence of right heart strain on CT and elevated troponin -2D echo shows good ejection fraction with right ventricular strain -Troponin trending down --Acute DVT left lower extremity Left popliteal, posterior tibial and peroneal veins. Hypertension -Recently diagnosed -On lisinopril -Given the significant elevated blood pressure I will add catecholamines to be checked Respiratory - Acute pulmonary embolism -Delayed quarter dose TPA infusion started by Dr. Stahl -Continuous monitoring on pulse ox GI - Heart healthy diet Famotidine RENAL/LYTES - CKD stage IIIcreatinine currently stable -Monitor BUNs/creatinine - Bhardwaj ENDO - No history of diabetes or thyroid disease -Hemoglobin A1c 6.2 ICU hyperglycemic protocol HEME - H&H stable, no evidence of bleeding. Monitor routine CBCs ID - No negation for infectious process at this time --Prophylaxis VTE: Heparin GI: Pepcid Lines: Peripheral, positive Bhardwaj Diet: Cardiac Plan: In/out: -1787, urine output 2975 Restart lisinopril and titrate higher to get the blood pressure around systolic 150 Hydralazine as needed Patient has significant blood pressure is very high. I am going to order catecholamines to make sure patient does not have pheochromocytoma We will try to avoid pure beta-blockers. Labetalol or Coreg can still be used Continue with heparin drip. Will change to therapeutic dose once alteplase infusion is done I have personally spent 45 minutes of critical care time in the direct management of this patient. This is a life/limb threatening event. This includes time spent evaluating patient, direct bedside care, chart review, placing orders, interpretation of diagnostic studies, discussion with consultants, patient, and family members, as well as other required patient management activities. This time is exclusive of all separately billable procedures, and teaching time and separate from and in addition to any other critical care service time. Please note the above document was generated using voice recognition software. It may contain grammatical, syntax or spelling errors. Admission and Anticipated Discharge Date Admission Date: September 23, 2021 Subjective Patient seen and examined at bedside. No acute distress, no adverse events overnight Patient's blood pressure was on the higher side systolic in the 190s She denies any headache, no nausea or vomiting Denies any chest pain She was saturating 96-97% on room air No belly pain Review of Systems Review of Systems: All systems reviewed & are unremarkable except as noted in Subjective Physical Exam 2 Physical Exam: Constitutional: No acute distress HEENT: EOMI, PERRLA Respiratory system: Good air entry bilaterally, no wheeze, rhonchi, mild crac kles bilateral CVS: S1-S2 positive, no murmurs or gallops Abdomen: Soft, nontender, nondistended, positive bowel sounds x4 Extremities: +2 pulses bilaterally radialis/ dorsalis pedis, no cyanosis, +1 edema left lower extremity Neuro: Awake alert oriented x3 Psych: Normal mood and affect G/U: Positive Bhardwaj Skin: no rashes, warm and dry Lymphatic: no cervical or axillary lymphadenopathy Results & Data Results & Data ([facility] [place]) Vital Signs (Past 12 Hours) Vital Signs Temp Pulse Resp BP Pulse Ox 09/25/21 05:30 86 19 95 09/25/21 05:00 96 H 20 172/100 H 97 09/25/21 04:30 93 H 25 H 97 09/25/21 04:00 95 H 20 180/103 H 96 09/25/21 03:30 95 H 19 94 09/25/21 03:00 36.7 C 100 H 21 198/112 H 96 09/25/21 02:30 109 H 20 95 09/25/21 02:01 95 H 25 H 177/96 H 94 09/25/21 02:00 97 H 19 96 09/25/21 01:30 88 19 96 09/25/21 01:00 93 H 23 130/88 93 09/25/21 00:30 92 H 22 95 09/25/21 00:01 97 H 16 155/101 H 97 09/25/21 00:00 94 H 22 94 09/24/21 23:30 96 H 23 94 09/24/21 23:01 91 H 21 124/63 92 09/24/21 23:00 36.8 C 90 21 91 09/24/21 22:30 91 H 23 96 09/24/21 22:10 98 H 24 179/104 H 98 09/24/21 22:00 98 H 22 161/103 H 95 09/24/21 21:30 93 H 22 98 09/24/21 21:00 100 H 19 154/89 H 94 09/24/21 20:30 101 H 25 H 97 09/24/21 20:00 103 H 23 186/105 H 96 Laboratory Results 09/25/21 04:32 09/25/21 04:32 Coding Level of Care Code Critical Care 1st 30-74 mins Diagnoses Pulmonary embolism I26.92 Acute cor pulmonale presence: unspecified Chronicity: acute Pulmonary embolism type: saddle Elevated troponin R77.8 History of hypertension Z86.79 Chronic kidney disease (CKD), stage III (moderate) N18.3 Time Spent (min) 45 (1) Pulmonary embolism Acute cor pulmonale presence: unspecified Chronicity: acute Pulmonary embolism type: saddle Qualified Code(s): I26.92 - Saddle embolus of pulmonary artery without acute cor pulmonale
[2021-09-25] MEDS ORDERED: hydrALAZINE HCL 20 MG/ML VIAL IV PRN (08:13)
[2021-09-25] MEDS ORDERED: lisinopril 10 MG TAB PO SCH (09:00)
[2021-09-25] MEDS ORDERED: ENOXAPARIN 80 MG/0.8 ML SYR SQ SCH (11:30)
[2021-09-25] MEDS ORDERED: LABETALOL HCL IV 5 MG/ML 20ML IV ONE (12:05)
[2021-09-25] MEDS ORDERED: LABETALOL HCL IV 5 MG/ML 20ML IV STA (12:10)
[2021-09-25 14:19] LABS: Basophils # (auto) 0.02 K/uL (0-0.2); Basophils % (auto) 0.2 %; Eosinophils # (auto) 0.02 K/uL (0-0.5); Eosinophils % (auto) 0.2 %; Hematocrit (blood only) 41.6 % (37-47); Hemoglobin 14.2 g/dL (12.0-16.0); Immature Granulocytes # (auto) 0.06 K/uL (0.00-0.02); Immature Granulocytes % (auto) 0.6 %; Lymphocytes # (auto) 1.73 K/uL (1.2-3.4); Lymphocytes % (auto) 16.2 %; Mean Corpuscular Hemoglobin 32.1 pg (25-34); Mean Corpuscular Hgb Conc 34.1 g/dL (32-36); Mean Corpuscular Volume 94.1 fL (80-100); Mean Platelet Volume 9.9 fL (7.4-10.4); Monocytes # (auto) 1.15 K/uL (0.11-0.59); Monocytes % (auto) 10.7 %; Neutrophils # (auto) 7.73 K/uL (1.4-6.5); Neutrophils % (auto) 72.1 %; Platelet Count 190 K/uL (130-400); RDW Coefficient of Variation 14.7 % (11.5-14.5); Red Blood Count 4.42 M/uL (4.2-5.4); White Blood Count 10.71 K/uL (4.8-10.8)
[2021-09-25 15:12] LABS: Fibrinogen 447 mg/dl (184-400); Partial Thromboplastin Time 27.3 Seconds (21.0-31.0)
[2021-09-25] MEDS ORDERED: Heparin IV Adult Wt-Based Standard *NO* Bolus Protocol IV ONE (15:20)
[2021-09-25] MEDS ORDERED: HEPARIN SODIUM/DEXTROSE 25,000 UNITS/500 ML BAG IV SCH (15:45)
--- NOTE | 2021-09-25 16:27 | Billing Data ---
Date of Service September 25, 2021 Coding Level of Care Code 60117 Subseq Hosp Care Lvl 2
[2021-09-25] MEDS ORDERED: lisinopril 10 MG TAB PO ONE (19:14)
[2021-09-25] MEDS: SENNA 8.6 MG TAB PO SCH (19:56)
[2021-09-25 21:03] LABS: Fibrinogen 425 mg/dl (184-400)
[2021-09-25 21:15] LABS: Partial Thromboplastin Ratio 1.9
[2021-09-25 22:22] LABS: Partial Thromboplastin Time 51.9 Seconds (21.0-31.0)
[2021-09-26 02:57] LABS: Fibrinogen 429 mg/dl (184-400)
[2021-09-26 05:03] LABS: Basophils # (auto) 0.02 K/uL (0-0.2); Basophils % (auto) 0.2 %; Eosinophils # (auto) 0.11 K/uL (0-0.5); Hematocrit (blood only) 38.9 % (37-47); Immature Granulocytes # (auto) 0.03 K/uL (0.00-0.02); Immature Granulocytes % (auto) 0.3 %; Lymphocytes # (auto) 2.15 K/uL (1.2-3.4); Lymphocytes % (auto) 20.2 %; Mean Corpuscular Hemoglobin 31.6 pg (25-34); Mean Corpuscular Hgb Conc 33.4 g/dL (32-36); Mean Corpuscular Volume 94.6 fL (80-100); Mean Platelet Volume 9.8 fL (7.4-10.4); Monocytes # (auto) 0.96 K/uL (0.11-0.59); Neutrophils # (auto) 7.39 K/uL (1.4-6.5); Neutrophils % (auto) 69.3 %; Platelet Count 196 K/uL (130-400); RDW Coefficient of Variation 14.7 % (11.5-14.5); RDW Standard Deviation 50.8 fL (36.4-46.3); Red Blood Count 4.11 M/uL (4.2-5.4); White Blood Count 10.66 K/uL (4.8-10.8)
[2021-09-26 05:23] LABS: BUN Creatinine Ratio 17.5 (10-20); Calcium 8.9 mg/dl (8.5-10.1); Creatinine Clr Calc Pharmacy 53.1 ml/min; Est GFR (African American) 67.2 ml/min; Est GFR (Non-African American) 57.9 ml/min; Phosphorus 3.1 mg/dl (2.5-4.9); Potassium 3.8 mmol/L (3.5-5.1)
[2021-09-26 05:26] LABS: Partial Thromboplastin Ratio 2.4
[2021-09-26 06:07] LABS: Partial Thromboplastin Time 65.7 Seconds (21.0-31.0)
--- NOTE | 2021-09-26 06:24 | Electrocardiogram Report ---
Test Reason : Blood Pressure : / mmHG Vent. Rate : 100 BPM Atrial Rate : 100 BPM P-R Int : 140 ms QRS Dur : 078 ms QT Int : 368 ms P-R-T Axes : 066 014 072 degrees QTc Int : 474 ms Normal sinus rhythm Possible Left atrial enlargement Nonspecific T wave abnormality Prolonged QT Abnormal ECG When compared with ECG of 24-SEP-2021 05:37, QT has lengthened Confirmed by Rai Thurston ([id number]) on 09/26/2021 6:24:04 AM Referred By: REFERRED SELF Confirmed By:Rai Thurston
[2021-09-26] MEDS ORDERED: POTASSIUM CHLORIDE CRTAB 20 MEQ TABCR PO STA (06:39)
--- NOTE | 2021-09-26 06:43 | Hospitalist Progress Note ---
Date of Service September 26, 2021 Assessment & Plan (1) Pulmonary embolism: Plan: 71 yo F w/ pMHx. of CKD III, HTN, HLD, obesity and uterine prolapse presenting with shortness of breath and found to have extensive PE and DVT. 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 Labetalol or Coreg can still be used. 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 - endorses some history and recurrence of small amount of bleeding on toilet paper - She has had some cauterization done the past Vaginal bleeding: likely 2/2 uterine prolapse although, although would want to further evaluate for malignancy given PE - pelvic/TVUS ordered but unable to be done over weekend -- will hold at this time as patient on heparin, TPA, and clinically guarded Pulmonary nodule: Incidental pulmonary nodule seen on CT scan of the chest, 4mm in size - Follow up with pulmonary as outpatient as warranted - Solitary nodule size: <6 mm * Low risk patients: no follow-up needed * high risk patients: optional CT at 12 months DVT prophylaxis: On heparin as above Dispo: STable for downgrade from ICU, will transfer to [facility] as has been hemodynamically stable FEN/GI: Heart healthy, Famotidine for ppx Code: Full (2) Chronic kidney disease (CKD), stage III (moderate): (3) Cor pulmonale, acute: (4) Dizziness: (5) Pulmonary nodule: (6) Elevated troponin: Admission and Anticipated Discharge Date Admission Date: September 23, 2021 Supervising Physician Co-Signing Physician Notes I personally examined the patient and verified all carlos points of history and exam, discussed case, and agree with decision making with Dr Munoz feeling good walked escalante no GORE. case management checked DOAC - eliquis cost effective Vitals noted, in general she is awake and alert pleasant no distress. HEENT normocephalic atraumatic mucous membranes moist. Breathing unlabored no accessory muscle use good effort. Skin shows no rashes no pallor or icterus. Neuro without focal deficits. Saddle PEdoing well. Thrombolytic infusion has been completed. transition to DOAC, transfer to med/surg, probably home tomorrow Markedly elevated blood pressure/hypertensionimproving. otherwise as above Subjective No acute events overnight. Patient doing well this morning. Reports that she has not felt any shortness of breath during this entire hospitalization. Denies chest pain, palpitations, cough, hemoptysis, nausea, vomiting, abdominal pain, fever, chills. Review of Systems Review of Systems: see subjective Physical Exam Physical Exam: GENERAL: A&Ox3. NAD. CHEST/LUNGS: CTAB A/P. No crackles, wheezes, rales, rhonchi. HEART: RRR. No m/g/r. No carotid bruits. EXTREMITIES: No cyanosis, no clubbing. 1+ edema of LLE. SKIN: Warm and dry. No rashes or lesions. PSYCHIATRIC: Euthymic affect, no SI, no pressured speech, no hallucinations NEUROLOGIC: No FND. Results & Data Results & Data ([facility]) Vital Signs (Past 12 Hours) Vital Signs Temp Pulse Resp BP Pulse Ox 09/26/21 06:00 88 22 157/90 H 95 09/26/21 05:30 100 H 26 H 154/98 H 95 09/26/21 05:00 107 H 23 178/105 H 96 09/26/21 04:30 91 H 22 155/98 H 95 09/26/21 04:00 82 23 175/94 H 94 09/26/21 03:30 86 22 148/88 H 93 09/26/21 03:00 96 H 25 H 165/94 H 94 09/26/21 02:30 99 H 27 H 167/107 H 95 09/26/21 02:00 89 23 174/89 H 96 09/26/21 01:48 36.4 C L 09/26/21 01:30 91 H 23 161/91 H 97 09/26/21 01:00 99 H 24 173/103 H 98 09/26/21 00:00 36.5 C 104 H 22 187/96 H 96 09/25/21 23:30 103 H 26 H 183/108 H 95 09/25/21 23:00 108 H 15 176/96 H 97 09/25/21 22:31 106 H 26 H 178/98 H 97 09/25/21 22:30 107 H 20 09/25/21 22:00 91 H 25 H 122/78 93 09/25/21 21:30 101 H 18 164/84 H 87 L 09/25/21 21:00 104 H 25 H 177/109 H 99 09/25/21 20:42 106 H 09/25/21 20:30 104 H 27 H 181/101 H 97 09/25/21 20:00 107 H 26 H 180/89 H 97 09/25/21 19:30 113 H 22 196/95 H 95 09/25/21 19:00 110 H 27 H 96 Resident Activity Tracking Resident Involvement: Resident Care Provided Care Provided: Adult Hospital Medicine (1) Pulmonary embolism Acute cor pulmonale presence: unspecified Chronicity: acute Pulmonary embolism type: saddle Qualified Code(s): I26.92 - Saddle embolus of pulmonary artery without acute cor pulmonale
--- NOTE | 2021-09-26 07:33 | Critical Care Progress Note ---
Date of Service September 26, 2021 Assessment & Plan (1) Pulmonary embolism: (2) Elevated troponin: (3) History of hypertension: (4) Chronic kidney disease (CKD), stage III (moderate): Plan: Impression: 71-year-old female presents to the ICU with acute PE with right heart strain. Patient was started on alteplase slow infusion by Dr. Stahl Neuro - [facility] ICU: Negative Cardiac - Cor pulmonale secondary to saddle PEevidence of right heart strain on CT and elevated troponin -2D echo shows good ejection fraction with right ventricular strain -Troponin trending down --Acute DVT left lower extremity Left popliteal, posterior tibial and peroneal veins. Hypertension -Recently diagnosed -On lisinopril -Given the significant elevated blood pressure I will add catecholamines to be checked Respiratory - Acute pulmonary embolism -Status post delayed quarter dose TPA infusion started by Dr. Stahl -Continuous monitoring on pulse ox GI - Heart healthy diet Famotidine RENAL/LYTES - CKD stage IIIcreatinine currently stable -Monitor BUNs/creatinine - Bhardwaj ENDO - No history of diabetes or thyroid disease -Hemoglobin A1c 6.2 ICU hyperglycemic protocol HEME - H&H stable, no evidence of bleeding. Monitor routine CBCs ID - No negation for infectious process at this time --Prophylaxis VTE: Heparin GI: Pepcid Lines: Peripheral, positive Bhardwaj Diet: Cardiac Plan: In/out: -2.8 L, urine output 4351 Patient's blood pressure is better controlled. Continue with lisinopril 20 mg I would recommend not to start the patient on preorbital blockers as I still think patient might have pheochromocytoma. Follow-up catecholamine levels from the serum. We will change heparin drip to therapeutic Lovenox 1 mg/kg twice daily. DC Bhardwaj. 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 Case was discussed with Dr Dietz Please note the above document was generated using voice recognition software. It may contain grammatical, syntax or spelling errors. Admission and Anticipated Discharge Date Admission Date: September 23, 2021 Subjective Patient seen and examined at bedside. No acute distress, no adverse events overnight. Denies any headache, no nausea, no vomiting Fair appetite. Denies any chest pain No shortness of breath Having bowel movements Review of Systems Review of Systems: All systems reviewed & are unremarkable except as noted in Subjective Physical Exam Physical Exam: Constitutional: No acute distress HEENT: EOMI, PERRLA Respiratory system: Good air entry bilaterally, no wheeze, rhonchi, mild crackles bilateral CVS: S1-S2 positive, no murmurs or gallops, tachycardia Abdomen: Soft, nontender, nondistended, positive bowel sounds x4 Extremities: +2 pulses bilaterally radialis/ dorsalis pedis, no cyanosis, no edema Neuro: Awake alert oriented x3 Psych: Normal mood and affect G/U: Positive Bhardwaj Skin: no rashes, warm and dry Lymphatic: no cervical or axillary lymphadenopathy Results & Data Results & Data ([facility]) Vital Signs (Past 12 Hours) Vital Signs Temp Pulse Resp BP Pulse Ox 09/26/21 06:00 88 22 157/90 H 95 09/26/21 05:30 100 H 26 H 154/98 H 95 09/26/21 05:00 107 H 23 178/105 H 96 09/26/21 04:30 91 H 22 155/98 H 95 09/26/21 04:00 82 23 175/94 H 94 09/26/21 03:30 86 22 148/88 H 93 09/26/21 03:00 96 H 25 H 165/94 H 94 09/26/21 02:30 99 H 27 H 167/107 H 95 09/26/21 02:00 89 23 174/89 H 96 09/26/21 01:48 36.4 C L 09/26/21 01:30 91 H 23 161/91 H 97 09/26/21 01:00 99 H 24 173/103 H 98 09/26/21 00:00 36.5 C 104 H 22 187/96 H 96 09/25/21 23:30 103 H 26 H 183/108 H 95 09/25/21 23:00 108 H 15 176/96 H 97 09/25/21 22:31 106 H 26 H 178/98 H 97 09/25/21 22:30 107 H 20 09/25/21 22:00 91 H 25 H 122/78 93 09/25/21 21:30 101 H 18 164/84 H 87 L 09/25/21 21:00 104 H 25 H 177/109 H 99 09/25/21 20:42 106 H 09/25/21 20:30 104 H 27 H 181/101 H 97 09/25/21 20:00 107 H 26 H 180/89 H 97 Laboratory Results 09/26/21 04:43 09/26/21 04:43 C[place] [address] Subseq Hosp Care Lvl 3 Patient Type Established Diagnoses Pulmonary embolism I26.92 Acute cor pulmonale presence: unspecified Chronicity: acute Pulmonary embolism type: saddle Elevated troponin R77.8 History of hypertension Z86.79 Chronic kidney disease (CKD), stage III (moderate) N18.3 (1) Pulmonary embolism Acute cor pulmonale presence: unspecified Chronicity: acute Pulmonary embolism type: saddle Qualified Code(s): I26.92 - Saddle embolus of pulmonary artery without acute cor pulmonale
[2021-09-26 08:31] LABS: Fibrinogen 472 mg/dl (184-400)
[2021-09-26] MEDS: MULTIVITAMIN TAB PO SCH (08:39)
[2021-09-26] MEDS: lisinopril 20 MG TAB PO SCH (08:39)
[2021-09-26] MEDS: DOCUSATE SODIUM 100 MG CAP PO SCH ×3 (08:39→21:02)
[2021-09-26] MEDS: FAMOTIDINE 20 MG TAB PO SCH (08:39)
[2021-09-26] MEDS: THIAMINE HCL 100 MG TAB PO SCH (08:40)
[2021-09-26] MEDS ORDERED: ENOXAPARIN 80 MG/0.8 ML SYR SQ SCH (10:00)
--- NOTE | 2021-09-26 14:34 | XCELERA ---
[id number]
--- NOTE | 2021-09-26 16:17 | Billing Data ---
Date of Service September 26, 2021 Coding Level of Care Code 19548 Subseq Hosp Care Lvl 2
--- NOTE | 2021-09-26 17:44 | OB/GYN Consultation ---
Date of Consultation September 26, 2021 Assessment & Plan (1) Foul smelling vaginal discharge: A vaginal culture was done to assess the source of the vaginal discharge. No further evaluation is necessary pending the results. I suspect the vaginal bleeding and spotting she has been having is because of a recurrent cervical erosion which would be best treated during exam in the outpatient setting. If she is to have a transvaginal ultrasound to evaluate the endometrial lining, she will need to remove the pessary so this can be done effectively. If she is having any trouble removing it herself we can certainly assist her in removal and reinsertion after the ultrasound. We will contact her with the results of the vaginal culture when it is available. History of Present Illness Reason for Consultation: pessary and symptomatic vaginal discharge Attending Physician: Faheem Verde DO History of Present Illness Patient is a 71-year-old 3 para 3-0-0-3 white female who was admitted because of a saddle pulmonary embolus. The patient has a ring pessary with support which she takes out herself monthly to clean and reinsert. She had taken her pessary out and cleaned it the first of the month. She is also using Premarin cream once a week. She has had a baseline yellow vaginal discharge which was not causing any symptoms. She also has had intermittent light bleeding or spotting particularly after a bowel movement. Of note she had a cervical erosion from her pessary that was treated with silver nitrate in December 2019. Recently she has noted an increase in the discharge and it has changed color to a brown-green. There is also a strong unpleasant odor present present as well. She denies any itching or soreness. She has had no recent antibiotic therapy. A pelvic ultrasound has been ordered because of the diagnosis of PE to evaluate for any neoplasm of the uterus. The ultrasound has not been completed yet. Allergies Allergy/AdvReac Type Severity Reaction Status Date / Time amlodipine Allergy Verified 09/23/21 13:33 Home Medications Medication Instructions Recorded Confirmed Type cholecalciferol (vitamin D3) 25 1,000 units PO DAILY 12/29/18 09/23/21 History mcg (1,000 unit) capsule conjugated estrogens 0.625 mg/gram See Rx Instructions PV .COMPLEX 07/27/21 09/23/21 Rx vaginal cream (Premarin) #30 gm ascorbic acid (vitamin C) 500 mg 500 mg PO DAILY 09/23/21 09/23/21 History tablet (Vitamin C) lisinopril 10 mg tablet 10 mg PO DAILY 09/23/21 09/23/21 History multivitamin 1 tab PO DAILY 09/23/21 09/23/21 History Patient History Medical History CKD (chronic kidney disease) H/O cyst of breast Uterine prolapse Surgical History H/O tooth extraction Family History Denies family history of Colon cancer Ovarian cancer Breast cancer Social History Smoking Status: Never smoker Hx Alcohol Use: No Hx Substance Use: No Preferred Language: Wolof Communication Ability: Effective 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 No external erythema noted. Pessary appeared to be in good position. Results & Data ([facility]) Vital Signs (Past 12 Hours) Vital Signs Temp Pulse Pulse Resp BP BP Pulse Ox 09/26/21 15:20 97.7 F 109 H 18 157/86 H 98 09/26/21 12:44 97.7 F 122 H 18 148/84 H 98 09/26/21 12:30 113 H 19 134/70 96 09/26/21 12:23 117 H 09/26/21 12:00 113 H 23 147/78 H 96 09/26/21 11:30 108 H 18 173/102 H 93 09/26/21 11:12 92 H 20 175/87 H 97 09/26/21 10:59 101 H 21 171/90 H 99 09/26/21 10:30 105 H 24 174/90 H 98 09/26/21 10:00 100 H 25 H 143/94 H 97 09/26/21 09:31 105 H 24 151/86 H 96 09/26/21 09:00 112 H 21 188/96 H 98 09/26/21 08:30 104 H 28 H 160/84 H 96 09/26/21 08:00 119 H 20 164/77 H 98 09/26/21 07:44 113 H 29 H 192/94 H 94 09/26/21 07:30 111 H 19 173/102 H 96 09/26/21 07:00 104 H 26 H 193/109 H 95 09/26/21 06:00 88 22 157/90 H 95 PG Care Time/CCT Total # of Minutes Spent Total Time Spent with Patient: Total time spent is greater than 50% in coordination of care (as documented) at patient's floor/unit and/or counseling patient: Coding Level of Care Code 40537 Initial Inpt Care Lvl 2 Diagnoses Foul smelling vaginal discharge N89.8
[2021-09-26] MEDS: SENNA 8.6 MG TAB PO SCH (21:02)
[2021-09-26] MEDS: APIXABAN 5 MG TABLET PO SCH (21:20)
[2021-09-27 06:28] LABS: Hematocrit (blood only) 37.5 % (37-47); Hemoglobin 12.8 g/dL (12.0-16.0); Mean Corpuscular Hemoglobin 32.7 pg (25-34); Mean Corpuscular Hgb Conc 34.1 g/dL (32-36); Mean Corpuscular Volume 95.7 fL (80-100); Platelet Count 221 K/uL (130-400); RDW Coefficient of Variation 14.8 % (11.5-14.5); RDW Standard Deviation 51.8 fL (36.4-46.3); Red Blood Count 3.92 M/uL (4.2-5.4); White Blood Count 7.93 K/uL (4.8-10.8)
[2021-09-27 07:06] LABS: Creatinine Clr Calc Pharmacy 47.1 ml/min; Est GFR (African American) 57.7 ml/min; Est GFR (Non-African American) 49.8 ml/min
--- NOTE | 2021-09-27 07:20 | Discharge Summary ---
Date of Service September 27, 2021 Admission HPI Per Admitting Provider 71 YOF with past medical history of: Obesity, HTN, Uterine Prolapse- with pessary, Vaginal bleeding, CKD III, lower extremity edema. Patient comes to the emergency room today for dyspnea, leg pain, nausea, and overall muscle pain in her arms and chest. The patient states that if she would get up to move, that her leg pain would get worse followed by nausea without vomiting. She has chronic leg pain and leg swelling but the only change is the leg pain. The pain is noted in her quads and around her knees and worse with ambulation. The arm pain was located in her left side and felt like she was lifting weights, "it just felt heavy and sore". In the EMD she had routine labs drawn to include Troponin I and D-dimer. These were both elevated. Patient then had CTA for PE of her chest. This was interpreted as Extensive bilateral pulmonary emboli including a saddle embolus at the main pulmonary arteries and some ground glass opacities that may reflect pulmonary infarct. EMD discussed case with customer service representative teacher at the time for evaluation of thrombolytics. As patient was without shock and risks discussed she also felt that she would want to go with heparin at this time. Hospitalist team was consulted for admission. The patient is on room air, SBP elevated, HR 130s. PESI III, Troponin 0.66. Patient will be admitted to the ICU for tachycardia and HTN following in the setting of extensive bilateral pulmonary embolism to follow her cardiopulmonary status. Patient has no history of Cancer, she follows with [employer] for vaginal bleeding, she has done the Cologuard screening for her rectal cancer screening, however does not appear that she has had a colonoscopy. She has chronically edematous legs with varicosities for which she wears compression hose for. She was up and walking around the mall yesterday doing some shopping and reports that she fell fine. She has not been less active recently and she also reports that she normally will do flexion and extensions of her ankles to prevent blood clots. She has not had any recent immunizations or illnesses. Was recently started on Lisinopril for elevated blood pressure. She does endorse that she had two sisters who had DVT and one with DVT/PE following surgical procedures, but other than that can not recall any clotting history in her family. COVID test on admission is: NEGATIVE Principal Diagnosis PE, DVT Discharge Exam GENERAL: A&Ox3. NAD. CHEST/LUNGS: CTAB A/P. No crackles, wheezes, rales, rhonchi. HEART: RRR. No m/g/r. No carotid bruits. EXTREMITIES: No cyanosis, no clubbing. 1+ edema of LLE. SKIN: Warm and dry. No rashes or lesions. PSYCHIATRIC: Euthymic affect, no SI, no pressured speech, no hallucinations NEUROLOGIC: No FND. Discharge Data Allergies Allergy/AdvReac Type Severity Reaction Status Date / Time amlodipine Allergy Verified 09/23/21 13:33 Consultations 09/23/21 14:04 ED Decision to Admit Stat 09/23/21 15:52 Consult Smelter Liner Routine 09/26/21 09:51 Consult Gynecology Routine Ordered Studies 09/23/21 13:23 CT angio chest PE protocol Stat 09/23/21 15:52 US venous doppler LE Routine Hospital Course (1) Pulmonary embolism: 71 yo F w/ pMHx. of CKD III, HTN, HLD, obesity and uterine prolapse presenting with shortness of breath and found to have extensive PE and DVT. 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 Labetalol or Coreg can still be used. Hypercholesterolemia: - Not on therapy at home Uterine prolapse -- w/ pessary in place Follows w/ [employer] - endorses some history and recurrence of small amount of bleeding on toilet paper - She has had some cauterization done the past - Reported foul-smelling vaginal discharge - Manager Software consulted: - vaginal culture was done to assess the source of the vaginal discharge - suspect the vaginal bleeding and spotting she has been having is because of a recurrent cervical erosion which would be best treated during exam in the outpatient setting - If she is to have a transvaginal ultrasound to evaluate the endometrial lining, she will need to remove the pessary so this can be done effectively Vaginal bleeding: likely 2/2 uterine prolapse although, although would want to further evaluate for malignancy given PE - pelvic/TVUS can be discussed as outpt on [employer] f/u - See above Pulmonary nodule: Incidental pulmonary nodule seen on CT scan of the chest, 4mm in size - Follow up with pulmonary as outpatient as warranted - Solitary nodule size: <6 mm * Low risk patients: no follow-up needed * high risk patients: optional CT at 12 months Dispo: Home, self- care; PCP & [employer] f/u Code: Full (2) Chronic kidney disease (CKD), stage III (moderate): (3) Cor pulmonale, acute: (4) Dizziness: (5) Pulmonary nodule: (6) Elevated troponin: Total Time Total Time Spent Total Time Spent (In Minutes): see attending attestation Discharge Plan Discharge Items Patient Disposition: Home - Self-Care Reason For Visit: PULMONARY EMBOLISM Discharge Diagnosis: PE, DVT Activity: Per Instructions section Non-emergency contact: Primary Care Provider Call non-emergency contact if: you have any medication questions and your symptoms worsen Follow-up/Referrals: Aditi Lang MD, FACOG [Physician] - Lang Connolly MD [Primary Care Provider] - 10/02/21 10:50 am Diet: Heart Healthy Addtl Attending Provider Instructions: You were admitted to [facility] due to leg pain, nausea, and muscle pain in arms and chest. A CT scan of your chest showed extensive pulmonary emboli and a subsequent ultrasound of your legs showed a deep venous thrombosis of your left leg. As such, you were started on anticoagulants (blood thinners) in your IV and were ad mitted to the ICU for close monitoring. You remained stable and progressed well on treatment so were eventually transitioned to subcutaneous blood thinners and were transferred out of the ICU. You were then started on an oral blood thinner called Eliquis. You will take this medication twice daily going forward. It is important that you continue to take this without missing doses as doing so could lead to a repeated event. While in the hospital you did have elevated blood pressures that required treatment with your lisinopril, but this had to be increased to 20mg daily. It is recommended that upon discharge you continue on this dose, at least until reevaluated by your PCP. Please schedule a follow-up with your PCP within the next week. Finally, you had a concern of vaginal bleeding and vaginal discharge, which was somewhat concerning given your pessary. intake coordinator consult was obtained, who performed a vaginal culture and recommended you follow up in the outpatient setting for further evaluation. Please schedule a follow up appointment with them at your earliest convenience. If you develop any severe symptoms such as coughing up blood, new-onset shortness of breath, new/worsening chest pain, fevers, chills, uncontrollable nausea/vomiting, or any other concerning symptoms, please return to the hospital for reevaluation. Pending Studies at Discharge: Yes Studies:: Catecholamines Vaginal culture Stand-Alone Forms: [employer], Smoking Cessation Medications and DC Order Prescriptions: New lisinopril 20 mg Tablet 20 mg PO QAM 30 Days Qty: 30 RF: 0 Eliquis 5 mg Tablet See Rx Instructions .ROUTE .COMPLEX Qty: 72 RF: 0 Continued Premarin 0.625 mg/gram cream See Patient Comments PV .COMPLEX Qty: 30 RF: 3 cholecalciferol (vitamin D3) 1,000 unit capsule 1,000 units PO DAILY RF: 0 multivitamin Tablet 1 tab PO DAILY RF: 0 ascorbic acid (vitamin C) [Vitamin C] 500 mg Tablet 500 mg PO DAILY RF: 0 Discontinued lisinopril 10 mg tablet 10 mg PO DAILY RF: 0 Discharge Orders: Discharge Order (Routine); Ordered 09/27/21 Ordered By: Duke Candelario/Other Patient Handouts: A1C, Understanding Deep Vein Thrombosis, DVT Complications, Pulmonary Embolism Admission Data Admit Date/Time: 09/23/21 14:45 Attending Provider: Faheem Verde Admit Provider: [employer] Primary Care Provider: Lang Connolly Other Providers: [employer] ; Peewee Stahl ; Aditi Lang Other Interventions: Discharge Summary Assessment (RN) Last Done: 09/27/21 12:30 Supervising Physician Co-Signing Physician Notes I personally examined the patient and verified all carlos points of history and exam, discussed case, and agree with decision making with Dr Munoz feels good up to going home discussed anticoagulation Vitals noted, in general she is awake and alert pleasant no distress. HEENT normocephalic atraumatic mucous membranes moist. Breathing unlabored no accessory muscle use good effort. Skin shows no rashes no pallor or icterus. Neuro without focal deficits. Saddle PEdoing well. Thrombolytic infusion has been completed. transition to DOAC went well. home. PCP f/u Markedly elevated blood pressure/hypertensionimproving overall - late addendum is that her last check prior to dc was higher than before - but i was not notified. at the same time, w no hypertensive sx - close outpt f/u most appropriate. otherwise as above Resident Activity Tracking Resident Involvement: Resident Care Provided Care Provided: Adult Hospital Medicine
[2021-09-27] MEDS: APIXABAN 5 MG TABLET PO SCH (08:32)
[2021-09-27] MEDS: DOCUSATE SODIUM 100 MG CAP PO SCH (08:32)
[2021-09-27] MEDS: FAMOTIDINE 20 MG TAB PO SCH (10:24)
[2021-09-27] MEDS: THIAMINE HCL 100 MG TAB PO SCH (10:25)
[2021-09-27] MEDS: MULTIVITAMIN TAB PO SCH (10:25)
[2021-09-27] MEDS: lisinopril 20 MG TAB PO SCH (10:25)
--- NOTE | 2021-09-27 19:24 | Billing Data ---
Date of Service September 27, 2021 Coding Level of Care Code D/C DAY MANAGEMENT <30 MINS
== END 2021-09-27 13:05 | disposition home or self-care (01) | DRG 175 ==
LOC: ED 12:02 → SUATTDRO 14:45 → 1E 14:45 → 3W 09-26 12:43
DX: N18.30 Chronic kidney disease, stage 3 unspecified; Z68.28 Body mass index [BMI] 28.0-28.9, adult; G89.29 Other chronic pain; I12.9 Hypertensive chronic kidney disease with stage 1 through stage 4 chronic kidney disease, or unspecified chronic kidney disease; I26.02 Saddle embolus of pulmonary artery with acute cor pulmonale; Z88.8 Allergy status to other drugs, medicaments and biological substances; I82.432 Acute embolism and thrombosis of left popliteal vein; E87.2 Acidosis; I82.442 Acute embolism and thrombosis of left tibial vein; N81.4 Uterovaginal prolapse, unspecified; I82.452 Acute embolism and thrombosis of left peroneal vein; E66.9 Obesity, unspecified; E78.00 Pure hypercholesterolemia, unspecified; I25.10 Atherosclerotic heart disease of native coronary artery without angina pectoris